=== PATIENT | male | born 1935 | race Caucasian/White ===

== ENCOUNTER 2017-07-20 14:21 | Inpatient (IN) | payer MEDICARE, OTHER, BC ==
[2017-07-20] VITALS (10 sets, daily range): BP systolic 125–148; BP diastolic 60–85; PULSE 52–69; RESP 16–21; TEMP 97.6–98.4; O2SAT 95–98
[~2017-07-20] VITALS: Ht 167.6 cm; Wt 77.5 kg
[~2017-07-20 14:21] MED LIST: ASPI81 PO; CLOP75 PO; CRES10TA OR; FISH100020 PO; HYDR-2768 PO; METO25 PO; VITA200T2 PO
[2017-07-20] MEDS ORDERED: PLAV75TA29 PO (14:41)
[2017-07-20] MEDS ORDERED: METO25TA3 PO (14:41)
[2017-07-20] MEDS ORDERED: ROSU10 PO (14:41)
[2017-07-20] MEDS ORDERED: HYDR25TA5 PO (14:41)
[2017-07-20] MEDS ORDERED: OMEGCAP PO (14:41)
[2017-07-20] MEDS ORDERED: PYRI100T4 PO (14:41)
[2017-07-20] MEDS ORDERED: ASPI-516 CHEW (14:41)
[2017-07-20] MEDS ORDERED: SODIUM CHLORIDE 0.9% FLUSH 10 ML FLUSH IVF PRN (15:00)
--- NOTE | 2017-07-20 15:03 | PD ---
HPI Chief Complaint: Chest Pain Time Seen by Provider: 14:33 Travel History International Travel<30 days: No Contact w/Intl Traveler<30days: No History of Present Illness HPI Send 82-year-old man who presents to the emergency department complaining of chest pain and pressure since yesterday. He is a history of CAD, with several stents placed by Dr. Yoder a couple years ago. He's done well since then. Yesterday he started getting show like discomfort across the entire anterior part of his chest, associated with some shortness of breath. He woke up today and still having the symptoms this morning, the symptoms worsen when he went to [facility] and was walking around. He had associated shortness of breath with this. No other recent illness or injury. No other complaints. History Past Medical History Narrative Medical CAD, history of stents Hypertension on hyperlipidemia Hypothyroidism History of prostate CA, receiving radiation Social History Alcohol Use: No Tobacco Use: No Allergies-Medications (Allergen,Severity, Reaction): Coded Allergies: No Known Allergies (Unverified Adverse Reaction, Unknown, 07/20/17) Reported Meds & Prescriptions Reported Meds & Active Scripts Active Reported Pyridoxine (Pyridoxine HCl) 100 Mg Tab 200 Mg PO DAILY [place]-3 Fish Oil/Vitamin (Fish Oil-Cholecalciferol) 1,000-1,000 Mg Cap 1 Cap PO DAILY Hydrochlorothiazide 25 Mg Tab 25 Mg PO DAILY Metoprolol Tartrate 25 Mg Tab 25 Mg PO DAILY Crestor (Rosuvastatin Calcium) 10 Mg Tab 10 Mg PO DAILY Plavix (Clopidogrel Bisulfate) 75 Mg Tab 75 Mg PO DAILY Aspirin 81 Mg Chew 81 Mg CHEW DAILY Review of Systems Except as stated in HPI: all other systems reviewed are Neg Physical Exam Narrative GENERAL: 82-year-old man, no acute distress. SKIN: Focused skin assessment warm/dry. HEAD: Atraumatic. Normocephalic. EYES: Pupils equal and round. No scleral icterus. No injection or drainage. ENT: No nasal bleeding or discharge. Mucous membranes pink and moist. NECK: Trachea midline. No JVD. CARDIOVASCULAR: Regular rate and rhythm. Soft systolic murmur. RESPIRATORY: No accessory muscle use. Clear to auscultation. Breath sounds equal bilaterally. GASTROINTESTINAL: Abdomen soft, non-tender, nondistended. Hepatic and splenic margins not palpable. MUSCULOSKELETAL: No obvious deformities. No clubbing. No cyanosis. No edema. NEUROLOGICAL: Awake and alert. No obvious cranial nerve deficits. Motor grossly within normal limits. Normal speech. PSYCHIATRIC: Appropriate mood and affect; insight and judgment normal. Data Data Last Documented VS Vital Signs Date Time Temp Pulse Resp B/P (MAP) Pulse Ox O2 Delivery O2 Flow Rate FiO2 07/20/17 14:24 98.4 67 16 137/63 (87) 98 Orders Orders Electrocardiogram (07/20/17 14:54) Complete Blood Count With Diff (07/20/17 14:54) Comprehensive Metabolic Panel (07/20/17 14:54) Magnesium (Mg) (07/20/17 14:54) Prothrombin Time / Inr (Pt) (07/20/17 14:54) Act Partial Throm Time (Ptt) (07/20/17 14:54) Troponin I (07/20/17 14:54) Chest, Single Ap (07/20/17 14:54) Ecg Monitoring (07/20/17 14:54) Bilateral Bp Monitoring (07/20/17 14:54) Iv Access Insert/Monitor (07/20/17 14:54) Oximetry (07/20/17 14:54) Oxygen Administration (07/20/17 14:54) Sodium Chloride 0.9% Flush (Ns Flush) (07/20/17 15:00) Heparin Inj (Heparin Inj) (07/20/17 16:45) Heparin Inj (Heparin Inj) (07/20/17 22:45) Heparin Inj (Heparin Inj) (07/20/17 22:45) Heparin-D5w 25,000 U/250 Ml (Heparin-D5w (07/20/17 16:45) Act Partial Throm Time (Ptt) (07/20/17 16:45) Prothrombin Time / Inr (Pt) (07/20/17 16:45) Cbc No Diff, Includes Plts (07/20/17 16:45) Cbc No Diff, Includes Plts (07/23/17 06:00) Act Partial Throm Time (Ptt) (07/20/17 23:45) Occult Blood (Hemoccult) Stool (07/20/17 16:45) Consult Cardiology (07/20/17 ) Admit Order (Ed Use Only) (07/20/17 ) Labs Laboratory Tests Test 07/20/17 15:00 Prothrombin Time 11.4 SEC Prothromb Time International Ratio 1.0 RATIO Activated Partial Thromboplast Time 29.0 SEC Blood Urea Nitrogen 23 MG/DL Creatinine 0.99 MG/DL Random Glucose 112 MG/DL Total Protein 7.4 GM/DL Albumin 3.4 GM/DL Calcium Level 9.1 MG/DL Magnesium Level 2.2 MG/DL Alkaline Phosphatase 67 U/L Aspartate Amino Transf (AST/SGOT) 23 U/L Alanine Aminotransferase (ALT/SGPT) 21 U/L Total Bilirubin 0.6 MG/DL Sodium Level 138 MEQ/L Potassium Level 4.4 MEQ/L Chloride Level 107 MEQ/L Carbon Dioxide Level 21.7 MEQ/L Anion Gap 9 MEQ/L Estimat Glomerular Filtration Rate 73 ML/MIN Troponin I 0.07 NG/ML MDM Medical Decision Making Medical Screen Exam Complete: Yes Emergency Medical Condition: Yes Interpretation(s) My review of EKG: Normal sinus rhythm at a rate of 65, normal axis, normal intervals, nonspecific lateral T wave inversions and flattening, no definite evidence of acute ischemia. LABS: Differential Diagnosis ACS, anxiety, arrhythmia, chest wall pain, other Narrative Course Medical decision making Is an 82-year-old man who presents to the emergency department with pressure- like chest discomfort. History of ACS with previous stents. Looks otherwise well. Initial EKG doesn't show any definite changes but does have some nonspecific T-wave flattening. We'll check labs, x-ray. Final: Troponin minimally elevated. We'll plan admission to the hospital, nitroglycerin, heparin, cardiology consultation. Spoke with Dr. Haro, will admit patient. Physician Communication Physician Communication Spoke with Dr. Haro, will admit patient. Diagnosis Primary Impression: ACS (acute coronary syndrome) Admitting Information Admitting Physician Requests: Admit Kip Shin MD Jul 20, 2017 15:03
--- NOTE | 2017-07-20 15:20 | RADRPT ---
EXAM DATE/TIME: 07/20/2017 15:04 [place] COMPARISON: No previous studies available for comparison. INDICATIONS : Patient states chest pains. MEDICAL HISTORY : None. SURGICAL HISTORY : Coronary artery stent. ENCOUNTER: Initial ACUITY: 1 day PAIN SCORE: 7/10 LOCATION: Bilateral chest FINDINGS: A single view of the chest demonstrates diffuse interstitial lung disease. Atherosclerotic disease.. The cardiomediastinal contours are unremarkable. Osseous structures are intact. CONCLUSION: Widespread diffuse interstitial prominence throughout the lungs. No pneumothorax. Kip Fields MD on July 20, 2017 at 15:17 Board Certified Radiologist. This report was verified electronically.
[2017-07-20 15:58] LABS: PROTHROMBIN TIME - PATIENT 11.4 SEC (9.8-11.6)
[2017-07-20 16:09] LABS: ALT (GPT) 21 U/L (12-78); ANION GAP 9 MEQ/L (5-15); AST (GOT) 23 U/L (15-37); BICARBONATE 21.7 MEQ/L (21.0-32.0); BLOOD UREA NITROGEN 23 MG/DL (7-18); CHLORIDE 107 MEQ/L (98-107); GLOMERULAR FILTRATION RATE 73 ML/MIN (>89); MAGNESIUM 2.2 MG/DL (1.5-2.5); POTASSIUM 4.4 MEQ/L (3.5-5.1); SODIUM (NA) 138 MEQ/L (136-145)
[2017-07-20 16:14] LABS: ALKALINE PHOSPHATASE 67 U/L (45-117); TOTAL BILIRUBIN ADULT 0.6 MG/DL (0.2-1.0)
[2017-07-20] MEDS ORDERED: HEPARIN-D5W 25,000 U/250 ML 250 ML IV PRN ×2 (16:45→20:00)
[2017-07-20] MEDS ORDERED: HEPARIN SODIUM - IV 10,000 UNITS/10 ML VIAL IV ONE (16:45)
[2017-07-20] MEDS ORDERED: NALOXONE HCL 0.4 MG/ML AMP IV PUSH PRN (17:45)
[2017-07-20] MEDS ORDERED: ONDANSETRON HCL 4 MG/2 ML VIAL IVP PRN (17:45)
[2017-07-20] MEDS ORDERED: ACETAMINOPHEN 325 MG TAB PO PRN (17:45)
[2017-07-20] MEDS ORDERED: SODIUM CHLORIDE 0.9% FLUSH 10 ML FLUSH IV FLUSH PRN (17:45)
[2017-07-20 17:57] LABS: APTT (PATIENT) 29.2 SEC (24.3-30.1); PROTHROMBIN TIME - PATIENT 11.5 SEC (9.8-11.6)
[2017-07-20] MEDS ORDERED: ASPIRIN EC 81 MG TABEC PO ONE (20:00)
[2017-07-20] MEDS ORDERED: CARVEDILOL 3.125 MG TAB PO ONE (20:00)
[2017-07-20] MEDS: ATORVASTATIN 40 MG TAB PO SCH (20:24)
[2017-07-20] MEDS: SODIUM CHLORIDE 0.9% FLUSH 10 ML FLUSH IV FLUSH SCH (20:27)
[2017-07-20] MEDS ORDERED: NITROGLYCERIN/DEXTROSE 5% 250 ML for chest pain IV PRN (20:45)
[2017-07-20] MEDS: NITROGLYCERIN 2% OINT 1 GM PACKET TOPICAL SCH (20:52)
[2017-07-20] MEDS: MORPHINE SULFATE 2 MG/ML INJ IM PRN (20:53)
[2017-07-20 21:54] LABS: AUTOMATED NEUTROPHIL # 6.1 TH/MM3 (1.8-7.7); BASOPHIL % 0.3 % (0.0-2.0); EOSINOPHIL # 0.4 TH/MM3 (0-0.4); EOSINOPHIL % 4.3 % (0.0-4.0); HEMATOCRIT 32.8 % (39.0-51.0); HEMO FLAGS DIFF FINAL; LYMPHOCYTE # 1.5 TH/MM3 (1.0-4.8); MEAN CELL VOLUME 89.4 FL (80.0-100.0); MEAN CORPUSCULAR HEMOGLOBIN 30.6 PG (27.0-34.0); MEAN CORPUSCULAR HGB CONC 34.3 % (32.0-36.0); MONO % 7.5 % (0.0-8.0); NEUT % 70.9 % (16.0-70.0); PLATELET COUNT 163 TH/MM3 (150-450); RED BLOOD COUNT 3.67 MIL/MM3 (4.50-5.90); RED CELL DISTRIBUTION WIDTH 13.4 % (11.6-17.2); WHITE BLOOD COUNT 8.7 TH/MM3 (4.0-11.0)
[2017-07-20] MEDS ORDERED: HEPARIN SODIUM - IV 10,000 UNITS/10 ML VIAL IV PRN ×2 (22:45)
[2017-07-21] VITALS (25 sets, daily range): BP systolic 129–152; BP diastolic 50–69; PULSE 44–96; RESP 17–19; TEMP 97.4–98.4; O2SAT 93–98
[2017-07-21] MEDS: NITROGLYCERIN 2% OINT 1 GM PACKET TOPICAL SCH ×4 (03:08→20:24)
[2017-07-21 03:51] LABS: APTT (PATIENT) 52.2 SEC (24.3-30.1)
[2017-07-21 04:21] LABS: MEAN CELL VOLUME 88.9 FL (80.0-100.0); MEAN CORPUSCULAR HEMOGLOBIN 30.4 PG (27.0-34.0); MEAN CORPUSCULAR HGB CONC 34.2 % (32.0-36.0); PLATELET COUNT 123 TH/MM3 (150-450); RED BLOOD COUNT 3.38 MIL/MM3 (4.50-5.90); RED CELL DISTRIBUTION WIDTH 13.2 % (11.6-17.2); REVIEW FLAG FINAL; WHITE BLOOD COUNT 8.9 TH/MM3 (4.0-11.0)
[2017-07-21] MEDS: MORPHINE SULFATE 2 MG/ML INJ IM PRN (07:51)
[2017-07-21] MEDS ORDERED: IOHEXOL 350 MG/ML 100 ML BTL (for Cath Lab) OTHER ONE (08:44)
[2017-07-21] MEDS ORDERED: HEPARIN-NS/PF INJ 1,000 ML ONE (08:47)
--- NOTE | 2017-07-21 08:50 | HHI.HP ---
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 Past Family Social History Allergies: Coded Allergies: No Known Allergies (Unverified Allergy, Unknown, 07/20/17) Past Medical History hptn hld hypothyroidism Past Surgical History prostate cancer Reported Medications Reported Meds & Active Scripts Active Reported Pyridoxine (Pyridoxine HCl) 100 Mg Tab 200 Mg PO DAILY [employer] Fish Oil/Vitamin (Fish Oil-Cholecalciferol) 1,000-1,000 Mg Cap 1 Cap PO DAILY Hydrochlorothiazide 25 Mg Tab 25 Mg PO DAILY Metoprolol Tartrate 25 Mg Tab 25 Mg PO DAILY Crestor (Rosuvastatin Calcium) 10 Mg Tab 10 Mg PO DAILY Plavix (Clopidogrel Bisulfate) 75 Mg Tab 75 Mg PO DAILY Aspirin 81 Mg Chew 81 Mg CHEW DAILY Active Ordered Medications Inpatient Medications Acetaminophen (Tylenol) 650 mg Q4H PRN PO TEMP > 100.4; Start 07/20/17 at 17: 45 Aspirin (Ecotrin Ec) 162 mg DAILY PO ; Start 07/21/17 at 09:00 Atorvastatin Calcium (Lipitor) 40 mg HS PO Last administered on 07/20/17 20: 24; Start 07/20/17 at 21:00 Carvedilol (Coreg) 3.125 mg Q12H PO ; Start 07/21/17 at 08:00 Heparin Sodium (Porcine) (Heparin Inj) 2,500 units UNSCH PRN IV APTT 25 TO 39; Start 07/20/17 at 22:45 Heparin Sodium/ Dextrose 250 ml @ 9 mls/hr TITRATE PRN IV Coagulation Management Last administered on 07/20/17 20:33; Start 07/20/17 at 20:00 Morphine Sulfate (Morphine Inj) 2 mg Q3H PRN IM PAIN SCALE 8 TO 10/CHEST PAIN Last administered on 07/21/17 07:51; Start 07/20/17 at 20:30 Naloxone HCl (Narcan Inj) 0.4 mg UNSCH PRN IV PUSH SEE LABEL COMMENTS; Start 07/20/17 at 17:45 Nitroglycerin (Nitroglycerin 2% Oint) 1 inch Q6H TOPICAL Last administered on 07/21/17 07:51; Start 07/20/17 at 21:00 Nitroglycerin/ Dextrose 250 ml @ 3 mls/hr TITRATE PRN IV Chest pain; Start at 20:45 Ondansetron HCl (Zofran Inj) 4 mg Q6H PRN IVP NAUSEA OR VOMITING; Start at 17:45 Sodium Chloride (NS Flush) 2 ml BID IV FLUSH Last administered on 07/20/17t 20 :27; Start 07/20/17 at 21:00 Social History non smoker non drinker Physical Exam Vital Signs Vital Signs Date Time Temp Pulse Resp B/P (MAP) Pulse Ox O2 Delivery O2 Flow Rate FiO2 07/21/17 06:00 56 07/21/17 05:37 95 Simple Mask 3.00 07/21/17 05:00 61 07/21/17 04:41 98 Simple Mask 4.00 07/21/17 04:28 98 Simple Mask 5.00 07/21/17 04:00 64 07/21/17 03:00 48 07/21/17 03:00 97.6 61 18 129/62 (84) 97 07/21/17 02:00 44 07/21/17 01:00 48 07/21/17 00:00 50 07/20/17 23:43 97.6 59 18 125/60 (81) 95 07/20/17 23:00 52 07/20/17 22:16 96 Nasal Cannula 3.00 07/20/17 22:00 62 07/20/17 22:00 88 Nasal Cannula 4.00 07/20/17 21:00 64 07/20/17 20:10 97.6 69 18 148/70 (96) 97 07/20/17 20:00 64 07/20/17 16:00 61 21 129/85 (100) 95 Nasal Cannula 2.00 07/20/17 15:15 21 95 2.00 07/20/17 15:15 131/81 (98) 128/85 (99) 07/20/17 15:15 95 Nasal Cannula 2.00 07/20/17 14:24 98.4 67 16 137/63 (87) 98 Physical Exam GENERAL: This is a well-nourished, well-developed patient, in no apparent distress. SKIN: No rashes, ecchymoses or lesions. Cool and dry. HEAD: Atraumatic. Normocephalic. No temporal or scalp tenderness. EYES: Pupils equal round and reactive. Extraocular motions intact. No scleral icterus. No injection or drainage. ENT: Nose without bleeding, purulent drainage or septal hematoma. Throat without erythema, tonsillar hypertrophy or exudate. Uvula midline. Airway patent. NECK: Trachea midline. No JVD or lymphadenopathy. Supple, nontender, no meningeal signs. CARDIOVASCULAR: Regular rate and rhythm without murmurs, gallops, or rubs no chest pain at present RESPIRATORY: Clear to auscultation. Breath sounds equal bilaterally. No wheezes , rales, or rhonchi. GASTROINTESTINAL: Abdomen soft, non-tender, nondistended. No hepato-splenomegaly , or palpable masses. No guarding. MUSCULOSKELETAL: Extremities without clubbing, cyanosis, or edema. No joint tenderness, effusion, or edema noted. No calf tenderness. Negative Homans sign bilaterally. NEUROLOGICAL: Awake and alert. Cranial nerves II through XII intact. Motor and sensory grossly within normal limits. Five out of 5 muscle strength in all muscle groups. Normal speech. Laboratory Laboratory Tests Test 07/20/17 15:00 07/20/17 17:00 07/20/17 21:34 07/21/17 00:05 Prothrombin Time 11.4 11.5 Prothromb Time International Ratio 1.0 1.0 Activated Partial Thromboplast Time 29.0 29.2 Blood Urea Nitrogen 23 Creatinine 0.99 Random Glucose 112 Total Protein 7.4 Albumin 3.4 Calcium Level 9.1 Magnesium Level 2.2 Alkaline Phosphatase 67 Aspartate Amino Transf (AST/SGOT) 23 Alanine Aminotransferase (ALT/SGPT) 21 Total Bilirubin 0.6 Sodium Level 138 Potassium Level 4.4 Chloride Level 107 Carbon Dioxide Level 21.7 Anion Gap 9 Estimat Glomerular Filtration Rate 73 Troponin I 0.07 0.06 0.07 White Blood Count 8.7 Red Blood Count 3.67 Hemoglobin 11.2 Hematocrit 32.8 Mean Corpuscular Volume 89.4 Mean Corpuscular Hemoglobin 30.6 Mean Corpuscular Hemoglobin Concent 34.3 Red Cell Distribution Width 13.4 Platelet Count 163 Mean Platelet Volume 9.1 Neutrophils (%) (Auto) 70.9 Lymphocytes (%) (Auto) 17.0 Monocytes (%) (Auto) 7.5 Eosinophils (%) (Auto) 4.3 Basophils (%) (Auto) 0.3 Neutrophils # (Auto) 6.1 Lymphocytes # (Auto) 1.5 Monocytes # (Auto) 0.6 Eosinophils # (Auto) 0.4 Basophils # (Auto) 0.0 CBC Comment DIFF FINAL Differential Comment Test 07/21/17 03:00 07/21/17 03:28 Activated Partial Thromboplast Time 52.2 White Blood Count 8.9 Red Blood Count 3.38 Hemoglobin 10.3 Hematocrit 30.0 Mean Corpuscular Volume 88.9 Mean Corpuscular Hemoglobin 30.4 Mean Corpuscular Hemoglobin Concent 34.2 Red Cell Distribution Width 13.2 Platelet Count 123 Mean Platelet Volume 9.8 B-Type Natriuretic Peptide 760 Result Diagram: 07/21/17 0328 07/20/17 1500 Imaging Last Impressions Chest X-Ray 07/20/17 1454 Signed Impressions: Service Date/Time: Thursday, July 20, 2017 15:04 - CONCLUSION: Widespread diffuse interstitial prominence throughout the lungs. No pneumothorax. Kip Fields MD Course cp intermittant through night ms and nitro ordered pt to cath this am Caprini VTE Risk Assessment Caprini VTE Risk Assessment: No/Low Risk (score <= 1) Caprini Risk Assessment Model Point Value = 1 Point Value = 2 Point Value = 3 Point Value = 5 Age 41-60 Minor surgery BMI > 25 kg/m2 Swollen legs Varicose veins or History of unexplained or recurrent spontaneous Oral contraceptives or hormone replacement Sepsis (< 1 month) Serious lung disease, including pneumonia (< 1 month) Abnormal pulmonary function Acute myocardial infarction Congestive heart failure (< 1 month) History of inflammatory bowel disease Medical patient at bed rest Age 61-74 Arthroscopic surgery Major open surgery (> 45 min) Laparoscopic surgery (> 45 min) Malignancy Confined to bed (> 72 hours) Immobilizing plaster cast Central venous access Age >= 75 History of VTE Family history of VTE Factor V Leiden Prothrombin [id number] Lupus anticoagulant Anticardiolipin antibodies Elevated serum homocysteine Heparin-induced thrombocytopenia Other congenital or acquired thrombophilia Stroke (< 1 month) Elective arthroplasty Hip, pelvis, or leg fracture Acute spinal cord injury (< 1 month) Prophylaxis Regimen Total Risk Factor Score Risk Level Prophylaxis Regimen 0-1 Low Early ambulation 2 Moderate Order ONE of the following: *Sequential Compression Device (SCD) *Heparin 5000 units SQ BID 3-4 Higher Order ONE of the following medications: *Heparin 5000 units SQ TID *Enoxaparin/Lovenox 40 mg SQ daily (WT < 150 kg, CrCl > 30 mL/min) *Enoxaparin/Lovenox 30 mg SQ daily (WT < 150 kg, CrCl > 10-29 mL/min) *Enoxaparin/Lovenox 30 mg SQ BID (WT < 150 kg, CrCl > 30 mL/min) AND/OR *Sequential Compression Device (SCD) 5 or more Highest Order ONE of the following medications: *Heparin 5000 units SQ TID (Preferred with Epidurals) *Enoxaparin/Lovenox 40 mg SQ daily (WT < 150 kg, CrCl > 30 mL/min) *Enoxaparin/Lovenox 30 mg SQ daily (WT < 150 kg, CrCl > 10-29 mL/min) *Enoxaparin/Lovenox 30 mg SQ BID (WT < 150 kg, CrCl > 30 mL/min) AND *Sequential Compression Device (SCD) Assessment and Plan Problem List: (1) CAD (coronary artery disease) ICD Codes: I25.10 - Atherosclerotic heart disease of [place] coronary artery without angina pectoris Plan: on bp and lipid management will have cardiac catheterization (2) Chest pain ICD Codes: R07.9 - Chest pain, unspecified Plan: to heart cath now Assessment and Plan chest pain cad htn hld Discussed Condition With patient Hans Hill Jul 21, 2017 08:50
--- NOTE | 2017-07-21 08:53 | HHI.PR ---
Subjective Remarks resting quietly more alert and oriented today Objective Vital Signs Date Time Temp Pulse Resp B/P (MAP) Pulse Ox O2 Delivery O2 Flow Rate FiO2 07/21/17 06:00 56 07/21/17 05:37 95 Simple Mask 3.00 07/21/17 05:00 61 07/21/17 04:41 98 Simple Mask 4.00 07/21/17 04:28 98 Simple Mask 5.00 07/21/17 04:00 64 07/21/17 03:00 48 07/21/17 03:00 97.6 61 18 129/62 (84) 97 07/21/17 02:00 44 07/21/17 01:00 48 07/21/17 00:00 50 07/20/17 23:43 97.6 59 18 125/60 (81) 95 07/20/17 23:00 52 07/20/17 22:16 96 Nasal Cannula 3.00 07/20/17 22:00 62 07/20/17 22:00 88 Nasal Cannula 4.00 07/20/17 21:00 64 07/20/17 20:10 97.6 69 18 148/70 (96) 97 07/20/17 20:00 64 07/20/17 16:00 61 21 129/85 (100) 95 Nasal Cannula 2.00 07/20/17 15:15 21 95 2.00 07/20/17 15:15 131/81 (98) 128/85 (99) 07/20/17 15:15 95 Nasal Cannula 2.00 07/20/17 14:24 98.4 67 16 137/63 (87) 98 I/O 07/20/17 07/20/17 07/20/17 07/21/17 07/21/17 07/21/17 07:00 15:00 23:00 07:00 15:00 23:00 Intake Total 82.5 ml Output Total 250 ml 150 ml Balance -250 ml -67.5 ml Intake IV Total 82.5 ml Output Urine Total 250 ml 150 ml Result Diagram: 07/21/17 0328 07/20/17 1500 Imaging Inpatient Medications Acetaminophen (Tylenol) 650 mg Q4H PRN PO TEMP > 100.4; Start 07/20/17 at 17: 45 Aspirin (Ecotrin Ec) 162 mg DAILY PO ; Start 07/21/17 at 09:00 Atorvastatin Calcium (Lipitor) 40 mg HS PO Last administered on 07/20/17 20: 24; Start 07/20/17 at 21:00 Carvedilol (Coreg) 3.125 mg Q12H PO ; Start 07/21/17 at 08:00 Heparin Sodium (Porcine) (Heparin Inj) 2,500 units UNSCH PRN IV APTT 25 TO 39; Start 07/20/17 at 22:45 Heparin Sodium/ Dextrose 250 ml @ 9 mls/hr TITRATE PRN IV Coagulation Management Last administered on 07/20/17 20:33; Start 07/20/17 at 20:00 Morphine Sulfate (Morphine Inj) 2 mg Q3H PRN IM PAIN SCALE 8 TO 10/CHEST PAIN Last administered on 07/21/17 07:51; Start 07/20/17 at 20:30 Naloxone HCl (Narcan Inj) 0.4 mg UNSCH PRN IV PUSH SEE LABEL COMMENTS; Start 07/20/17 at 17:45 Nitroglycerin (Nitroglycerin 2% Oint) 1 inch Q6H TOPICAL Last administered on 07/21/17 07:51; Start 07/20/17 at 21:00 Nitroglycerin/ Dextrose 250 ml @ 3 mls/hr TITRATE PRN IV Chest pain; Start at 20:45 Ondansetron HCl (Zofran Inj) 4 mg Q6H PRN IVP NAUSEA OR VOMITING; Start at 17:45 Sodium Chloride (NS Flush) 2 ml BID IV FLUSH Last administered on 07/20/17 20 :27; Start 07/20/17 at 21:00 Objective Remarks GENERAL: Well-nourished, well-developed patient. SKIN: Warm and dry. HEAD: Normocephalic. EYES: No scleral icterus. No injection or drainage. NECK: Supple, trachea midline. No JVD or lymphadenopathy. CARDIOVASCULAR: Regular rate and rhythm without murmurs, gallops, or rubs. RESPIRATORY: Breath sounds equal bilaterally. No accessory muscle use. GASTROINTESTINAL: Abdomen soft, non-tender, nondistended. EXTREMITIES: No cyanosis, or edema. NEUROLOGICAL: Awake, alert, and more oriented today no obvious hallucinationsNon-focal. Medications and IVs Inpatient Medications Acetaminophen (Tylenol) 650 mg Q4H PRN PO TEMP > 100.4; Start 07/20/17 at 17: 45 Aspirin (Ecotrin Ec) 162 mg DAILY PO ; Start 07/21/17 at 09:00 Atorvastatin Calcium (Lipitor) 40 mg HS PO Last administered on 07/20/17 20: 24; Start 07/20/17 at 21:00 Carvedilol (Coreg) 3.125 mg Q12H PO ; Start 07/21/17 at 08:00 Heparin Sodium (Porcine) (Heparin Inj) 2,500 units UNSCH PRN IV APTT 25 TO 39; Start 07/20/17 at 22:45 Heparin Sodium/ Dextrose 250 ml @ 9 mls/hr TITRATE PRN IV Coagulation Management Last administered on 07/20/17 20:33; Start 07/20/17 at 20:00 Morphine Sulfate (Morphine Inj) 2 mg Q3H PRN IM PAIN SCALE 8 TO 10/CHEST PAIN Last administered on 07/21/17 07:51; Start 07/20/17 at 20:30 Naloxone HCl (Narcan Inj) 0.4 mg UNSCH PRN IV PUSH SEE LABEL COMMENTS; Start 07/20/17 at 17:45 Nitroglycerin (Nitroglycerin 2% Oint) 1 inch Q6H TOPICAL Last administered on 07/21/17 07:51; Start 07/20/17 at 21:00 Nitroglycerin/ Dextrose 250 ml @ 3 mls/hr TITRATE PRN IV Chest pain; Start at 20:45 Ondansetron HCl (Zofran Inj) 4 mg Q6H PRN IVP NAUSEA OR VOMITING; Start at 17:45 Sodium Chloride (NS Flush) 2 ml BID IV FLUSH Last administered on 07/20/17 20 :27; Start 07/20/17 at 21:00 Assessment and Plan Problem List: (1) CAD (coronary artery disease) ICD Codes: I25.10 - Atherosclerotic heart disease of [place] coronary artery without angina pectoris Plan: on bp and lipid management will have cardiac catheterization (2) Chest pain ICD Codes: R07.9 - Chest pain, unspecified Plan: to heart cath now Assessment and Plan chest pain cad htn hld Discharge Planning pt will need residential placement Hans Hill DO Jul 21, 2017 08:53
[2017-07-21] MEDS ORDERED: HEPARIN SODIUM - IV 10,000 UNITS/10 ML VIAL ONE (09:24)
[2017-07-21] MEDS ORDERED: HEPARIN-NS/PF INJ 500 ML ONE (10:14)
--- NOTE | 2017-07-21 10:23 | MB ---
cc: EVA PELLETIER M.D. DATE OF CONSULTATION: 07/21/2017 REASON FOR CONSULTATION: Jeremias is a very pleasant 82-year gentleman history coronary disease status PCI by myself back in 2011 with drug-eluting stents in the mid and distal left circ. This and done a stage procedure, the initial procedure was through a chronic total occlusion. The patient began developing chest pain on was mild more of a nuisance. He went to [facility] yesterday and developed severe substernal chest pain, severe shortness of breath, weakness, fatigue, diaphoresis, and came to the emergency room was found have elevated troponin. He otherwise denies any fever, chills, cough bleeding times her temper dizziness. Past medical history is per history present illness. He has a history of hypertension, hyperlipidemia, hypothyroidism, history of prostate cancer receiving radiation therapy. SOCIAL HISTORY Denies tobacco or alcohol use. ALLERGIES None. HOME MEDICATIONS 1. <<1:01>> . 1. [place] 3. 2. Hydrochlorothiazide 25 3. Metoprolol 25 daily. 4. Crestor 10 daily. 5. Plavix 75 daily. 6. Aspirin 81 mg daily. IN THE HOSPITAL. 7. Aspirin 62 mg daily 8. Carvedilol 3.25 q.12 h 9. Heparin drip 10. Atorvastatin 40 at bedtime 11. Nitro drip 12. 1 inch nitro paste. PHYSICAL EXAMINATION VITAL SIGNS: Pulse 56, sats 95% on 3 liters. Blood pressure 129/62. IN GENERAL: He is alert and three in no acute distress. NECK: The neck is supple, no jugular venous distention, no bruitis. CARDIOVASCULAR SYSTEM: S1, S2. No murmurs, rubs or gallops. LUNGS: Clear to bilaterally. ABDOMEN: Soft, nontender, positive bowel sounds. EXTREMITIES: Lower extremity edema. LABORATORY DATA White count 8.91, temperature of 33.0, platelet count 123. Sodium 138, potassium 4.4, chloride 107, BUN 23, creatinine 0.99 troponin is 0.07 0.6, 0.7. B-type natriuretic peptide 760, AST 23, INR is 1.0, PTT 3, 52.6. Chest x-ray; widely diffuse interstitial prominence throughout the lungs. No pneumothorax. Electrocardiogram; Normal sinus rhythm, nonspecific ST-T wave changes. DIAGNOSIS: 1. Non-Stemi. 2. Decompensated congestive heart failure. 3. Prostate cancer. 4. Coronary artery disease. 5. Anemia 6. Thrombocytopenia. 7. Bradycardia. DISCUSSION Left heart catheterization is medically necessary due to non-STEMI, multiple cardiac risk factors. Also right heart catheterization due to decompensated congestive heart failure. The patient will continue on aspirin and heparin. We will get ACT after the sheath was placed. To receive Lipitor and Coreg as if he tolerates that however he has had bradycardia and has been intolerant of beta blockers in the past. Will need to monitor and follow trends. MD MAURICIO Teran/leroy /9:02 AM /10:13 AM
[2017-07-21] MEDS ORDERED: TIROFIBAN INFUSION INJ 0 ML IV ONE (10:26)
[2017-07-21] MEDS ORDERED: CLOPIDOGREL 300 MG TAB ONE (11:15)
[2017-07-21] MEDS ORDERED: MISC INFORMATION XX ONE (11:30)
[2017-07-21] MEDS ORDERED: SODIUM CHLORIDE 0.9% FLUSH 10 ML FLUSH IV FLUSH PRN (11:30)
[2017-07-21] MEDS ORDERED: CLOPIDOGREL 300 MG TAB PO ONE (11:30)
[2017-07-21] MEDS ORDERED: BACITRACIN OINT 0.9 GM PKT TOP ONE (11:30)
--- NOTE | 2017-07-21 11:34 | CATHPROC ---
[facility] HIS Report Study Information Study Number Admission Scheduled Start Study Start [id number] Jul 20 2017 4:49PM 07/21/2017 Jul 21 2017 8:40AM [place] [facility] Cardiac Catheterization Admit Source Facility Department Emergency department [facility] - Traffic Sergeant Physician and Clinical Staff Initial Bennie Escalante Wire Loop Machine OperatorJosie Santos RN Wire Loop Machine Operatorjocelyn Felton RN, Adam Recorder Mikey Bernstein,RT(R) Annelise Hahn,RT(R) Procedures Performed Procedure Location (Site) Vessel Name Coronary Angiograms LCA Left Coronary Coronary Angiograms RCA Right Coronary IVUS Lft Main Left Coronary LV Gram-hand inj. LV LV Ventricle PTCA RCA Mid Right Coronary Wire insertion Fem Art (right) Femoral Art Equipment Time Senior Technical Manager Description Size Mfg Part Number Used/Scraped [id number] 09:23 [employer] WIRE, ASAHI PROWATER 180CM 180CM Used *[id number] 29440-95 09:40 [employer] WIRE, ASAHI PROWATER 180CM 180CM Used *[id number] 07111-84 10:29 [employer] WIRE, ASAHI PROWATER 180CM 180CM Used *[id number] 92804-78 10:52 [employer] WIRE, ASAHI PROWATER 180CM 180CM Used *[id number] CATHETER, FR5 SWAN ELA 09:02 LEON SWANN FR 5 110F5 *[id number] Used MONITOR CATHETER, FR5 SWAN ELA 09:14 LEON SWANN FR 5 110F5 *[id number] Used MONITOR TRANSDUCER, TRUWAVE [id number] 08:43 LEON SWANN * Used W/STOCKCOCK *[id number] TRANSDUCER, TRUWAVE [id number] 10:26 LEON SWANN * Used W/STOCKCOCK *[id number] 8957840 10:52 [employer]ON [employer] WIRE, CHOICE PT 182CM 182CM Used *8558968 7954056 10:37 [employer] WIRE, CHOICE PT 182CM 182CM Used *[id number] 670-110-00 *0078053 -004-00 *9662114 538-420 *2313563 -082-00 *1585896 538-421 *8723745 538-453S *8844588 -052-00 *9345784 -054-00 *4504598 -056-00 *2610417 49-145 09:22 Meditech WIRE, BENTSON .035 150CM 150CM Used *[id number] 08:43 MEDLINE INDUSTRIES PACK, CCL CUSTOM * Used *5851313 [id number] 10:26 MEDLINE INDUSTRIES PACK, CCL CUSTOM * Used *8141084 [id number] 10:26 MEDLINE PACER PEN, SKIN DUAL W/ RULER * Used *7054469 [id number] 08:43 MEDLINE PACER PEN, SKIN DUAL W/ RULER * Used *3763832 [id number] 10:44 MEDTRONIC BALLOON, 1.5 X 12MM EUPHORA 12MM Used *[id number] [id number] 10:59 MEDTRONIC BALLOON, 2.0 X 12MM EUPHORA 12MM Used *[id number] BALLOON, 2.25 X 12MM [id number] 10:40 MEDTRONIC 12MM Used EUPHORA *[id number] [id number] 10:42 crobo MEDICAL 30 JAS INDEFLATOR Used *[id number] 09:00 MERIT MEDICAL SHEATH, FR5.5 PRELUDE 11CM FR 5 [id number] Used [id number] 09:32 [employer]ICAL SHEATH, FR6.5 PRELUDE 11CM FR 6.5 038ACT Used *3398432 [id number]- 10:28 MERIT [employer]ICAL SHEATH, FR6.5 PRELUDE 11CM FR 6.5 038ACT Used *6572736 [id number] 10:26 MERIT MEDICAL WIRE, 3MMJ .035 180CM 180CM Used *6919822 [id number] 08:43 [employer]IT [employer]ICAL WIRE, 3MMJ .035 180CM 180CM Used *3457626 [id number] 08:43 NAMIC MANIFOLD, 4 PORT * Used *5272278 [id number] 10:26 NAMIC MANIFOLD, 4 PORT * Used *8648464 10:26 NYCOMED OMNIPAQUE, 350 MG, 150ML 150ML [id number] Used 08:43 NYCOMED OMNIPAQUE, 350 MG, 150ML 150ML [id number] Used [id number] 08:43 QUINN MEDICAL BLANKET,WARM AIR CCL * Used *3528429 [id number] 10:26 QUINN MEDICAL BLANKET,WARM AIR CCL * Used *1313885 [id number] 10:26 TERUMO MEDICAL SHEATH, FR4 TERUMO (10CM) FR 4 Used *5428622 [id number] 08:43 TERUMO MEDICAL SHEATH, FR4 TERUMO (10CM) FR 4 Used *9674542 CATHETER, [place] [employer] [place] [id number] 09:32 [place]OL[place]O Used IMAGING *[id number] [id number] Scrap: Physician 11:07 MEDTRONIC STENT, 2.5 12 INTEGRITY 2.5 12 *[id number] choice [id number] Scrap: Physician 11:05 MEDTRONIC STENT, 2.5 18 INTEGRITY 2.5 18 *[id number] choice [id number] Scrap: Physician 11:10 MEDTRONIC STENT, 2.5 8 INTEGRITY 2.5 8 *[id number] choice Equipment Model, Serial, Lot Number and Expiration Data Description Model Number Serial Number Lot Number Expiration Date BALLOON, 1.5 X 12MM EUPHORA [id number] 01-11-2019 BALLOON, 2.0 X 12MM EUPHORA [id number] 03-09-2019 BALLOON, 2.25 X 12MM EUPHORA [id number] 09-08-2018 CATHETER, [employer] [employer] [id number] 05-26-2019 IMAGING WIRE, BENTSON .035 150CM [id number] 03-26-2020 WIRE, CHOICE PT 182CM [id number] 11-06-2018 WIRE, CHOICE PT 182CM [id number] 04-26-2019 History: Allergies Allergy Reaction No Known Allergies History: Risk Factors Family History of Hypertension Dyslipidemia Previous OK Previous Heart Failure Premature CAD Yes Yes Yes Yes No Prior Valve Prior PCI Prior PCIDate Prior CABG Surgery No Yes 02/07/2012 No Cerebrovascular Peripheral Artery Chronic Lung On Dialysis Diabetes Disease Disease Disease No No No No No History: Other Current Smoker No Labs Hgb (g/dl) Hct (%) WBC (l/cumm) Platelets (thousands) 11.60-17.00 35.00-51.00 4.00-11.00 150.00-450.00 10.3 30 8.9 123 Glucose (mg/dl) BUN (mg/dl) Creatinine (mg/dl) BUN:Creatinine (1:x) 74.00-106.00 7.00-18.00 0.50-1.30 10.00-20.00 112 23 0.9 25.6 Na (meq/l) K (meq/l) 136.00-145.00 3.50-5.10 138 4.4 INR (PTT:PT) 0.90-1.10 1 Troponin I (ng/ml) CPK-MB (ng/ML) 0.02-0.05 0.50-3.60 0.07 Not Drawn Medication Medication Total Dose (Bolus/Oral) Medication Total Dosage/Unit 1% XYLOCAINE 20 mL HEPARIN 8000 units PLAVIX 600 mg Medications (Bolus/Oral) Medication Time Given Dosage/Unit Administered By Reason 1% XYLOCAINE 07/21/2017 9:07:09 AM 20 mL Bennie Yoder 20 mL 1% XYLOCAINE given in lab by Bennie Yoder in Right Groin via Subcutaneous. Ordered by Bennie Morales. HEPARIN 07/21/2017 9:31:11 AM 4000 units Adam Felton RN 4000 units HEPARIN given in lab by Adam Felton RN via Peripheral IV. Ordered by Bennie Yoder. 07/21/2017 10:30:05 HEPARIN 2000 units Josie Feliz AM 2000 units HEPARIN given in lab by Josie Feliz RN via Peripheral IV. Ordered by Bennie Yoder. 07/21/2017 11:05:28 HEPARIN 2000 units Adam Felton RN, AM 2000 units HEPARIN given in lab by Adam Felton RN via Peripheral IV. Ordered by Bennie Yoder. 07/21/2017 11:17:14 PLAVIX 600 mg Adam Felton RN, AM 600 mg PLAVIX given in lab by Adam Felton RN via Oral. Ordered by Bennie Yoder. Medication (Drip) Medication Time Given Dosage/Unit Concentration/Unit Diluent (ml) Solution IV Solutions 07/21/2017 8:56:22 AM 0 mL (IV) 500 NaCl .9 IV Solutions given in lab by Josie Feliz RN in Left Forearm via Peripheral IV. Pump/Drip Flow = 2 0 ml/hr using NaCl .9. Ordered by Bennie Yoder. Initial Case Assessment Cardiovascular HR Rhythm NIBP Chest Pain 60 sr 134/61 0 Edema Present Skin color Skin None Normal Warm Dry Circulatory - Right Pulses Dorsalis Pedis Femoral 3 3 Scale (0,1,2,3,4,d) Circulatory - Left Pulses Dorsalis Pedis Femoral 3 3 Scale (0,1,2,3,4,d) Neurological State Oriented to time-place- Alert Moves all extremities person Respiration - General Respiration Rate SpO2 (%) O2 (lpm) (B/min) 18 98 4 Final Case Assessment Cardiovascular HR Rhythm NIBP Chest Pain 70 sr 124/49 0 Edema Present Skin color Skin None Normal Warm Dry Circulatory - Right Pulses Dorsalis Pedis Femoral 3 3 Scale (0,1,2,3,4,d) Circulatory - Left Pulses Dorsalis Pedis Femoral 3 3 Scale (0,1,2,3,4,d) Neurological State Oriented to time-place- Alert Moves all extremities person Respiration - General Respiration Rate SpO2 (%) O2 (lpm) (B/min) 18 96 4 Chronological Log Time Study Chronological Log 8:44:29 Patient arrived via Bed. 8:44:31 Patient Name, D.O.B, / Armband Verified By R.N. 8:44:32 Consent signed by the physician and the patient and verified by the Traffic Sergeant staff. 8:44:33 Pre-op and post- op instructions given; patient acknowledges understanding of instructions. 8:44:38 Verbal Stimulation=2 Physical Stimulation=2 Airway=2 Respiration=2 TOTAL=8. (0=absent, 1=li mited, 2=present) 8:44:53 Presedation assessment performed by Traffic Sergeant RN. 8:44:55 Patient has been NPO for More than 6Hrs. 8:52:49 Skin Breakdown-none present per patient. 8:54:28 Pressure channel 1 zeroed. Vitals capture started with the following parameters, Patient=Adult, Interval=5 min, Initial Pr eiqyft=476 mmHg, 8:55:33 Deflation Rate=5 mmHg, Cuff placed on Left Arm 8:56:10 A # 20 IV was noted in the Forearm (left). Grade = 0 8:56:17 HR=66 bpm, BADG=502/61 mmhg, SpO2=95.0 %, Resp=21 B/min, Yusuf=2 IV Solutions given in lab by Josie Feliz, JILLIAN in Left Forearm via Peripheral IV. Pump/Drip Fl ow = 20 ml/hr using NaCl 8:56:22 .9. Ordered by Bennie Yoder. 8:56:43 History and physical on the chart or being dictated. Assessment: Initial Case, HR=60 BPM, Rhythm=sr, FPHR=242/61 mmhg, Chest Pain=0, Edema=None, [place] r=Normal, Skin = Warm, Dry Right Pulses: Jim Ped=3, Femoral=3 8:56:50 Left Pulses: Jim Ped=3, Femoral=3 Neurological: State=Alert, Ox3, TAVERAS Respiration: Resp=18 B/min, SpO2=98 %, O2=4 lpm 8:56:55 Reference ECG taken 8:57:20 Bilateral groins prepped with 2% chlorhexidine, and draped after a 3 minute waiting time. 9:01:10 HR=68 bpm, FRPQ=755/65 mmhg, SpO2=94.0 %, Resp=26 B/min, Yusuf=2 9:02:13 Pressure channel 1 zeroed. 9:06:13 HR=66 bpm, IDCF=620/55 mmhg, SpO2=94.0 %, Resp=23 B/min, Yusuf=2 Time Out. Correct patient, correct procedure, correct physician, power injector not loaded with contrast with surgical 9:06:36 team present. Time Out Concurred by MD and individual staff in procedure. Not loaded at this melany e. 9:06:55 Presedation re-assessment performed by Traffic Sergeant RN. 9:06:57 Case Start 9:06:59 Verbal Stimulation=2 Physical Stimulation=2 Airway=2 Respiration=2 TOTAL=8. (0=absent, 1=torres ited, 2=present) 20 mL 1% XYLOCAINE given in lab by Bennie Yoder in Right Groin via Subcutaneous. Ordered by Paresh, 9:07:09 Bennie. 9:08:23 Access site was Right Femoral Vein. 9:08:30 A SHEATH, FR5.5 PRELUDE 11CM FR 5 was advanced into the Fem Vein (right) using the Percutane ous technique. 9:09:48 Access site was Right Femoral Artery. 9:09:53 A SHEATH, FR4 TERUMO (10CM) FR 4 was advanced into the Fem Art (right) using the Percutaneou s technique. A CATHETER, FR5 SWAN ELA MONITOR FR 5 was advanced over a wire. OMNIPAQUE, 350 MG, 150ML 150ML was 9:10:03 used for injections. 9:10:41 Activated Clotting Time Drawn 9:10:52 A CATHETER, FR5 SWAN ELA MONITOR FR 5 was inserted via Fem Vein (right) 9:11:08 HR=64 bpm, XQNM=047/63 mmhg, SpO2=97.0 %, Resp=30 B/min, Yusuf=2 9:13:42 ACT (Normal Range 90-180) = 168 9:14:09 SWAN Catheter was removed. Balloon is defective. 9:14:24 A CATHETER, FR5 SWAN ELA MONITOR FR 5 was inserted via Fem Vein (right) 9:15:55 Saturation: Site=Ao (Aorta) , O2=97.4 %, Hgb=10.3 gm/dl, Condition=Condition 1. Used in calc ulation. 9:16:07 HR=62 bpm, FCIX=274/68 mmhg, SpO2=96.0 %, Resp=23 B/min, Yusuf=2 Recorded Pressure: MPA, HR=65, Condition=Condition 1 9:16:43 (Main Pulmonary Artery) MPA 43/12/24 Recorded Pressure: PCW, HR=64, Condition=Condition 1 9:16:59 (Pulmonary Capillary Wedge) PCW 36/46/23 Recorded Pressure: RV, HR=66, Condition=Condition 1 9:17:17 (Right Ventricle) RV 50/5/12 Recorded Pressure: RA, HR=64, Condition=Condition 1 9:18:27 (Right Atrium) RA 14/8/7 9:19:21 Patterson Ela Catheter Removed 9:19:36 Saturation: Site=PA (Pulmonary Artery) , O2=75.9 %, Hgb=10.3 gm/dl, Condition=Condition 1. U sed in calculation. 9:20:01 Saturation: Site=RA (Right Atrium) , O2=76.2 %, Hgb=10.3 gm/dl, Condition=Condition 1. Used in calculation. A JR 4.0 INFINITI CATHETER FR 4 was advanced over a wire. OMNIPAQUE, 350 MG, 150ML 150ML was use d for :20:24 injections. 9:21:08 HR=62 bpm, EVFZ=618/72 mmhg, SpO2=97.0 %, Resp=23 B/min, Yusuf=2 9:22:18 The RCA was injected and visualized at various angles. OMNIPAQUE, 350 MG, 150ML 150ML used. 9:22:50 A WIRE, BENTSON .035 150CM 150CM was inserted via Fem Art (right). 9:24:28 Catheter was removed A JL 4.0 INFINITI CATHETER FR 4 was advanced over a wire. OMNIPAQUE, 350 MG, 150ML 150ML was us ed for 9:24:30 injections. Recorded Pressure: Ao, HR=65, Condition=Condition 1 9:25:22 (Aorta) Ao 119/45/74 9:25:32 The LCA was injected and visualized at various angles. OMNIPAQUE, 350 MG, 150ML 150ML used. 9:26:07 HR=62 bpm, YZVH=592/61 mmhg, SpO2=98.0 %, Resp=20 B/min, Yusuf=2 A PIGTAIL ANG. INFINITI CATHETER FR 4 was advanced over a wire. OMNIPAQUE, 350 MG, 150ML 150ML was used 9:29:37 for injections. Recorded Pressure: LV, HR=61, Condition=Condition 1 9:30:01 (Left Ventricle) LV 142/8/19 9:31:08 HR=62 bpm, UZPP=471/60 mmhg, SpO2=97.0 %, Resp=20 B/min, Yusuf=2 9:31:11 4000 units HEPARIN given in lab by Adam Felton RN via Peripheral IV. Ordered by Nydia Yoder rtfrench. 9:31:34 The LV was manually injected with 10 cc's and visualized. OMNIPAQUE, 350 MG, 150ML 150ML use d. 9:31:41 Catheter was removed A SHEATH, FR6.5 PRELUDE 11CM FR 6.5 was exchanged in the Fem Art (right). This was necessary in order to 9:31:44 accomodate a larger catheter. A XB 4.0 GUIDE CATHETER FR 6 was advanced over a wire. OMNIPAQUE, 350 MG, 150ML 150ML was used for 9:33:17 injections. 9:33:49 Catheter was removed A XB 3.5 GUIDE CATHETER FR 6 was advanced over a wire. OMNIPAQUE, 350 MG, 150ML 150ML was used for 9:35:23 injections. 9:35:35 A WIRE, [employer] PROWATER 180CM 180CM was inserted via Fem Art (right). 9:35:58 Activated Clotting Time Drawn 9:36:09 HR=63 bpm, NUCP=467/60 mmhg, SpO2=98.0 %, Resp=22 B/min, Yusuf=2 9:39:38 Wire removed 9:39:42 Catheter was removed A XB 3.0 GUIDE CATHETER FR 6 was advanced over a wire. OMNIPAQUE, 350 MG, 150ML 150ML was used for 9:40:07 injections. 9:41:08 ACT (Normal Range 90-180) = 282 9:41:12 HR=58 bpm, SMOX=589/53 mmhg, SpO2=98.0 %, Resp=21 B/min, Yusuf=2 After removing the current catheter a JL 4.0 GUIDE CATHETER FR 6 was advanced over a WIRE, 3MMJ .035 180CM 9:44:10 180CM. 9:46:08 A WIRE, ASAHI PROWATER 180CM 180CM was inserted via Fem Art (right). 9:46:09 HR=58 bpm, UBHM=791/63 mmhg, SpO2=98.0 %, Resp=20 B/min, Yusuf=2 9:47:00 Interventional wire has crossed the lesion 9:47:43 An CATHETER, [employer] IMAGING was advanced through the lesion. Images saved on to IVUS hard drive 9:49:00 IVUS in progress using CATHETER, [employer] [employer] IMAGING 9:51:08 HR=59 bpm, AQDM=981/59 mmhg, SpO2=98.0 %, Resp=18 B/min, Yusuf=2 9:53:20 IVUS catheter removed 9:55:47 IVUS catheter removed 9:56:14 HR=66 bpm, OYTU=549/73 mmhg, SpO2=96.0 %, Resp=15 B/min, Yusuf=2 10:00:37 Catheter(s) removed without difficulty 10:00:38 In the Fem Art (right) the SHEATH, FR6.5 PRELUDE 11CM FR 6.[address] by Bennie Darden. 10:00:48 In the Fem Vein (right) the SHEATH, FR5.5 PRELUDE 11CM FR [address] by Bennie Winston. 10:00:58 Sterile dressing applied to site 10:01:01 No case complications noted. 10:01:03 Cine recording checked. 10:01:08 HR=64 bpm, CTNS=502/56 mmhg, SpO2=96.0 %, Resp=23 B/min, Yusuf=2 10:01:08 Bedside Report will be given. 10:01:33 Contrast Scanned 10:02:23 ACT (Normal Range 90-180) = 216 10:05:11 A Left and Right Heart Cath was performed. 10:06:08 HR=65 bpm, XYXI=957/63 mmhg, SpO2=96.0 %, Resp=19 B/min, Yusuf=2 10:13:02 Dr. Yoder consulted with Dr. Cardona. Dr. Yoder is going to stent the RCA at this time . 10:14:31 Patient is being re-prepped at this time. Vitals capture started with the following parameters, Patient=Adult, Interval=5 min, Initial Pr owknzj=816 mmHg, 10:15:16 Deflation Rate=5 mmHg, Cuff placed on Left Arm 10:15:57 HR=59 bpm, JPSR=329/65 mmhg, SpO2=96.0 %, Resp=19 B/min, Yusuf=2 10:20:52 HR=62 bpm, KNKK=301/58 mmhg, SpO2=98.0 %, Resp=25 B/min, Yusuf=2 10:25:51 HR=63 bpm, ESTD=245/60 mmhg, SpO2=95.0 %, Resp=26 B/min, Yusuf=2 10:28:13 Pressure channel 1 zeroed. 10:30:05 2000 units HEPARIN given in lab by Josie Feliz RN via Peripheral IV. Ordered by Bennie Winston. Time Out. Correct patient, correct procedure, correct physician, power injector not loaded with contrast with surgical 10:30:10 team present. Time Out Concurred by MD and individual staff in procedure. Not loaded at this ti me. 10:30:50 HR=60 bpm, BXEL=498/69 mmhg, SpO2=98.0 %, Resp=25 B/min, Yusuf=2 A SHEATH, FR6.5 PRELUDE 11CM FR 6.5 was exchanged in the Fem Art (right). This was necessary in order to insure 10:31:27 sterility. A JR 4.0 GUIDE CATHETER FR 6 was advanced over a wire. OMNIPAQUE, 350 MG, 150ML 150ML was used for 10:32:58 injections. 10:34:05 A WIRE, [employer] PROWATER 180CM 180CM was inserted via Fem Art (right). 10:34:54 Interventional wire has crossed the lesion 10:35:53 HR=64 bpm, MLOE=373/55 mmhg, SpO2=96.0 %, Resp=22 B/min, Yusuf=2 10:36:46 A WIRE, CHOICE PT 182CM 182CM was inserted via Fem Art (right). 10:37:00 Activated Clotting Time Drawn 10:40:44 A BALLOON, 2.25 X 12MM EUPHORA 12MM was inserted over WIRE, CHOICE PT 182CM 182CM via the R CA Mid. 10:40:53 HR=64 bpm, ZVHE=079/59 mmhg, SpO2=95.0 %, Resp=18 B/min, Yusuf=2 A BALLOON, 2.25 X 12MM EUPHORA 12MM over a WIRE, ASAHI PROWATER 180CM 180CM in the RCA Mid was inflated 10:41:22 using a 30 JAS INDEFLATOR at ~JAS~ jas for ~SECONDS~ sec. 10:42:23 ACT (Normal Range 90-180) = 288 10:43:40 Balloon Removed. 10:44:37 A BALLOON, 1.5 X 12MM EUPHORA 12MM was inserted over WIRE, CHOICE PT 182CM 182CM via the RC A Mid. 10:45:54 HR=62 bpm, OOVQ=301/59 mmhg, SpO2=95.0 %, Resp=18 B/min, Yusuf=2 10:48:34 Balloon Removed. 10:48:43 Wires removed 10:49:46 Catheter was removed 10:49:48 A AR 1 GUIDE CATHETER FR 6 was advanced over a wire. OMNIPAQUE, 350 MG, 150ML 150ML was use d for injections. 10:50:53 HR=48 bpm, VCSI=497/60 mmhg, SpO2=95.0 %, Resp=14 B/min, Yusuf=2 10:51:28 A WIRE, CHOICE PT 182CM 182CM was inserted via Fem Art (right). 10:53:34 Interventional wire has crossed the lesion 10:54:49 A WIRE, ASAHI PROWATER 180CM 180CM was inserted via Fem Art (right). 10:54:54 Interventional wire has crossed the lesion 10:55:22 A BALLOON, 1.5 X 12MM EUPHORA 12MM was inserted over WIRE, CHOICE PT 182CM 182CM via the RC A Mid. 10:55:56 HR=66 bpm, SUXO=187/57 mmhg, SpO2=95.0 %, Resp=16 B/min, Yusuf=2 A BALLOON, 1.5 X 12MM EUPHORA 12MM over a WIRE, CHOICE PT 182CM 182CM in the RCA Mid was inflat ed using a 10:56:49 30 JAS INDEFLATOR at 14 jas for 16 sec. A BALLOON, 1.5 X 12MM EUPHORA 12MM over a WIRE, CHOICE PT 182CM 182CM in the RCA Mid was inflat ed using a 10:57:14 30 JAS INDEFLATOR at 14 jas for 15 sec. A BALLOON, 1.5 X 12MM EUPHORA 12MM over a WIRE, CHOICE PT 182CM 182CM in the RCA Mid was inflat ed using a 10:57:37 30 JAS INDEFLATOR at 14 jas for 15 sec. A BALLOON, 1.5 X 12MM EUPHORA 12MM over a WIRE, CHOICE PT 182CM 182CM in the RCA Mid was inflat ed using a 10:58:22 30 JAS INDEFLATOR at 14 jas for 15 sec. 10:59:09 Balloon Removed. 10:59:13 A BALLOON, 2.0 X 12MM EUPHORA 12MM was inserted over WIRE, CHOICE PT 182CM 182CM via the RC A Mid. A BALLOON, 2.0 X 12MM EUPHORA 12MM over a WIRE, CHOICE PT 182CM 182CM in the RCA Mid was inflat ed using a 10:59:26 30 JAS INDEFLATOR at 10 jas for 12 sec. A BALLOON, 2.0 X 12MM EUPHORA 12MM over a WIRE, CHOICE PT 182CM 182CM in the RCA Mid was inflat ed using a 11:01:10 30 JAS INDEFLATOR at 12 jas for 10 sec. 11:01:32 HR=64 bpm, VALS=490/66 mmhg, SpO2=96.0 %, Resp=20 B/min, Yusuf=2 A BALLOON, 2.0 X 12MM EUPHORA 12MM over a WIRE, CHOICE PT 182CM 182CM in the RCA Mid was inflat ed using a 11:01:32 30 JAS INDEFLATOR at 12 jas for 10 sec. 11:02:38 Balloon Removed. An STENT, 2.5 18 INTEGRITY 2.5 18 Bare Metal Stent was inserted through a AR 1 GUIDE CATHETER F R 6 over a 11:05:06 WIRE, CHOICE PT 182CM 182CM. 11:05:28 2000 units HEPARIN given in lab by Adam Felton RN via Peripheral IV. Ordered by Bennie Yoder. 11:06:00 HR=65 bpm, FRZI=891/56 mmhg, SpO2=95.0 %, Resp=19 B/min, Yusuf=2 11:06:36 Stent not deployed. Stent removed and intact. An STENT, 2.5 12 INTEGRITY 2.5 12 Bare Metal Stent was inserted through a AR 1 GUIDE CATHETER F R 6 over a 11:07:37 WIRE, CHOICE PT 182CM 182CM. 11:09:06 Stent not deployed. Stent removed and intact. An STENT, 2.5 8 INTEGRITY 2.5 8 Bare Metal Stent was inserted through a AR 1 GUIDE CATHETER FR 6 over a WIRE, 11:10:14 CHOICE PT 182CM 182CM. 11:10:59 HR=67 bpm, SGJA=199/60 mmhg, SpO2=97.0 %, Resp=18 B/min, Yusuf=2 11:11:42 Stent not deployed. Stent removed and intact. Recorded Pressure: Ao, HR=66, Condition=Condition 1 11:12:26 (Aorta) Ao -33/-79/-61 11:13:20 Activated Clotting Time Drawn 11:13:42 Wires removed 11:13:51 Catheter was removed 11:14:26 Case End 11:15:58 HR=65 bpm, QDKI=428/49 mmhg, SpO2=95.0 %, Resp=20 B/min, Yusuf=2 Assessment: Final Case, HR=70 BPM, Rhythm=sr, MQOR=509/49 mmhg, Chest Pain=0, Edema=None, Color =Normal, Skin = Warm, Dry Right Pulses: Jim Ped=3, Femoral=3 11:16:32 Left Pulses: Jim Ped=3, Femoral=3 Neurological: State=Alert, Ox3, TAVERAS Respiration: Resp=18 B/min, SpO2=96 %, O2=4 lpm 11:17:10 In the Fem Art (right) the SHEATH, FR6.5 PRELUDE 11CM FR 6.[address] by Bennie Darden. 11:17:14 600 mg PLAVIX given in lab by Adam Felton RN via Oral. Ordered by Bennie Yoder. 11:20:55 HR=68 bpm, ILLN=610/58 mmhg, SpO2=96.0 %, Resp=27 B/min, Yusuf=2 11:22:16 ACT (Normal Range 90-180) = 310 11:25:09 [facility] End Study - Contrast Media Used In Study Contrast Total Opened (mL) Total Used (mL) Total Wasted (mL) Omnipaque 175 175 0 End Study - Maximum Contrast Load Max Contrast Load (mL) 429.3 End Study - Radiation Exposure Fluoro Time (minutes) 35.5 End Study - Patient Disposition Complications Transferred To Critical Care Bed
[2017-07-21] MEDS: CARVEDILOL 3.125 MG TAB PO SCH ×2 (12:25→20:22)
[2017-07-21] MEDS: ASPIRIN EC 81 MG TABEC PO SCH (12:25)
[2017-07-21] MEDS: SODIUM CHLORIDE 0.9% FLUSH 10 ML FLUSH IV FLUSH SCH ×3 (12:25→20:22)
[2017-07-21 12:58] LABS: ANION GAP 10 MEQ/L (5-15); AST (GOT) 18 U/L (15-37); BICARBONATE 19.7 MEQ/L (21.0-32.0); BLOOD UREA NITROGEN 27 MG/DL (7-18); CHLORIDE 107 MEQ/L (98-107); GLOMERULAR FILTRATION RATE 79 ML/MIN (>89); MAGNESIUM 2.1 MG/DL (1.5-2.5); POTASSIUM 4.3 MEQ/L (3.5-5.1); SODIUM (NA) 137 MEQ/L (136-145)
[2017-07-21 12:59] LABS: ALT (GPT) 18 U/L (12-78)
[2017-07-21 13:01] LABS: ALKALINE PHOSPHATASE 60 U/L (45-117); TOTAL BILIRUBIN ADULT 0.7 MG/DL (0.2-1.0)
--- NOTE | 2017-07-21 15:29 | EKG ---
Date Performed: 07/20/2017 Time Performed: 14:33:00 PTAGE: 82 years EKG: Sinus rhythm NONSPECIFIC ST & T-WAVE ABNORMALITY ABNORMAL ECG INTERPRETATION BASED ON A DEFAULT AGE OF 41 YEARS C ompared to the PREVIOUS TRACING from 02/08/12, no significant change DOCTOR: Shukri Mcdonnell Interpretating Date/Time 07/21/2017 15:28:33
--- NOTE | 2017-07-21 17:21 | MA ---
cc: EVA PELLETIER M.D. DATE 07/21/17 PROCEDURES PERFORMED 1. Right heart catheterization. 2. left heart catheterization. 3. Left ventriculography. 4. Coronary angiography. 5. IVUS of the left main. 6. PTCA of the proximal right coronary artery. INDICATIONS Non-STEMI, coronary artery disease. [place] Cardiovascular Society class IV angina, acute coronary syndrome, decompensated congestive heart failure with BNP equal to 700, severe coronary artery disease. PROCEDURE IN DETAIL The patient was brought to the Cardiac Catheterization Laboratory, prepped and draped in the usual sterile fashion. 10 cc of 1% lidocaine was used to locally anesthetize the right common femoral artery. 4-Tanzanian sheath was subsequently placed in the right common femoral artery. A 5-Tanzanian sheath placed in the right common femoral vein. Right heart catheterization was performed first with the following findings. These pulmonary capillary wedge pressure was 36/46-23. PA pressure 43/12-24. RV pressure 50/5-12. RA pressure 14/8-7. On 4 liters of nasal cannula the patient's femoral artery sat was 97.4%. PA sat 75.9%, RA sat 76.2%, cardiac output was 7.8 liters per minute. Cardiac index was 4.2 liters per meter squared per minute and the SVR was 1291.4 dynes. Left heart catheterization was then performed with a 4-[place] JR-4, JL-4 and pigtail catheters with the following findings: The right coronary artery is heavily fibrocalcific, the proximate segment very tortuous. The ostium has a slightly ___ orientation with dense fibrocalcific at the os. There is an initial 45 degrees bend followed by a secondary 45 degrees bend followed by a third 90 degrees bend and then just after this with another 90 degrees bend. At the proximal right coronary artery there is an 80% stenosis and at the second 90 degrees bend at the RV branch there is a 95% hazy fibrocalcific stenosis. There is diffuse disease in the mid segment up to 50% angiographically. The [id number]-qa-hxrimh segment has a 40-50% stenosis. There is mild disease in the distal segment up to 20-30 angiographically right PDA has no significant obstructed disease, extends to the apex. The right posterolateral artery is a small vessel with no significant disease angiographically. The left main coronary artery is densely fibrocalcific angiographically. It is short. In the cranial views it appears to have at least a 50% stenosis but it is difficult to tell the true lumen given the shadowing of the dense calcification. The ostium of the left circumflex vessel appears to have an 80% ostial stenosis. There is mild to moderate diffuse disease in the proximal mid segment up to 30-40% angiographically. There is a very small first obtuse marginal vessel, was 0.5 mm in diameter. There is a small to medium size posterolateral artery in the distal left circ, with no significant obstructive disease. Stents in the mid and distal left circ are widely patent. The LAD has a 60% proximal mid stenosis there are two diagonal vessels which are within 2-3 mm of each other which are medium-sized vessels with no significant obstructive disease. The LAD is transapical. DISCUSSION Note, there is no dampening of the pressure waveform with a 4-[place] JL-4 catheter in the left main, however, due to its short anatomy and the amount of dense calcification and the uncertainty of left main disease particularly given the V-wave of pulmonary capillary wedge pressure of 46 suggesting moderate MR as well as severe new onset angina with decompensated congestive heart failure I did think that IVUS of the left main was medically necessary. Therefore, we exchanged the 6-Tanzanian sheath for the 4-Tanzanian sheath. We used a 6-[place]anzanian JL-4 guide. The patient was given 4,000 units of heparin, ACT was 282, then placed a [place] guidewire into the LAD, did two pull backs across the left main documenting the ostium of the bifurcation of the left main with a severe ostial left circ disease. The left main was densely calcified circumferentially with a minimal luminal area of 7.7 mm. I then discussed the case with Dr. Manny Cardona. Given the patient's comorbidities of anemia with hemoglobin of 10 and thrombocytopenia with decreasing platelet count, advanced age and severe fibrocalcification of his vessels and not quite meeting anatomic criteria for left main disease on IVUS measurement we decided to attempt PCI of the right coronary artery and then reevaluate the patient's symptoms with the plan being proceed to CABG if there was no significant improvement in symptoms provided however all the preop workup including a 2-D echo, carotid ultrasound were not contraindications to CABG. The ACT dropped to 216 after the IVUS, therefore he was given another 4000 units of heparin with an ACT of 288. 6-[place]anz[place] AR-1 guide was used to intubate the ostial right coronary artery. I was able to cross the lesion but not advance the wire with a 0.014 Prowater guidewire, therefore I used a 0.04 Choice PT floppy guidewire and advanced this to the distal right coronary artery. I then placed a 0.014 Prowater guidewire which I could advance only to the [id number] right coronary artery as a toby wire. I was not able to deliver a 2-0 12 Euphora balloon. I was able to deliver with difficulty a 1.5 Euphora balloon to the distal lesion in the mid right coronary artery. I then did three inflations up to 14 atmospheres, however, we could not maintain pressure, it appeared that the balloon perforated. Therefore, I then was able to place a 2-0 12 Euphora balloon at the distal lesion. I did four inflations while pulling back to the more proximal lesion of up to 16 atmospheres up to 20 seconds. The stenoses went from 90% to 20% and 80% to 20% respectively in the proximal right coronary artery. I then attempted to deliver a 2518 Integrity stent, a 2512 Integrity stent and a 258 Integrity stent. I was not able to deliver them to the more distal lesion due to vessel tortuosity. I did not feel risk benefit ratio favored more aggressive predilatation as I was concerned about vessel dissection and then not being able to deliver the stent. Also, the patient had an immediate improvement in his systolic blood pressure from about 100 to 120 and heart rate improved from the 40s up the 70s after improved perfusion of the right coronary artery suggesting hemodynamically significant improvement. Also note I did an LV gram was an angled pigtail catheter with LV pressures 142/18-19, EF 60%. CONCLUSION 1. Moderate left main disease and severe two-vessel coronary artery disease in a right-dominant system and moderate to severe three-vessel coronary artery disease in a right-dominant system as detailed above. 2. Normal LV systolic function, ejection fraction 60%. 3. V-Wave to 46 mmHg on pulmonary capillary wedge tracings suggesting at least moderate MR. 4. Pullback gradient across the aortic valve of approximately 20 mmHg. 5. Successful PTCA of proximal right coronary artery from 80% to 20% with KINGSLEY-III flow and successful PTCA of the proximal mid-right coronary from 95% to 20% with KINGSLEY III flow. 6. Recommend Plavix 600 milligrams p.o. load, then 75 milligrams a day for at least 12 or 15 months. Aspirin 162 milligrams daily. I have held the Aggrastat due to the patient's thrombocytopenia and anemia. Continue Lipitor 40, Coreg 3.125 daily and also start Altace 2.5 daily. Will follow the patient's trends and symptoms. If no significant improvement will need to consider coronary artery bypass graft procedure. Also, need to get a 2-D echo to evaluate for MR and aortic valve stenosis. MD MAURICIO Teran/EO /11:25 AM /4:43 PM
[2017-07-21] MEDS: ATORVASTATIN 40 MG TAB PO SCH (20:22)
[2017-07-22] VITALS (34 sets, daily range): BP systolic 108–143; BP diastolic 55–66; PULSE 55–102; RESP 16–19; TEMP 97.5–98.3; O2SAT 92–96
[2017-07-22] MEDS: NITROGLYCERIN 2% OINT 1 GM PACKET TOPICAL SCH ×4 (03:00→20:13)
[2017-07-22 04:30] LABS: AUTOMATED NEUTROPHIL # 6.5 TH/MM3 (1.8-7.7); BASOPHIL % 0.2 % (0.0-2.0); EOSINOPHIL # 0.3 TH/MM3 (0-0.4); EOSINOPHIL % 3.1 % (0.0-4.0); HEMATOCRIT 27.3 % (39.0-51.0); HEMO FLAGS DIFF FINAL; LYMPH % 9.7 % (9.0-44.0); LYMPHOCYTE # 0.8 TH/MM3 (1.0-4.8); MEAN CELL VOLUME 88.5 FL (80.0-100.0); MEAN CORPUSCULAR HEMOGLOBIN 31.5 PG (27.0-34.0); MEAN CORPUSCULAR HGB CONC 35.6 % (32.0-36.0); MONO % 9.4 % (0.0-8.0); NEUT % 77.6 % (16.0-70.0); PLATELET COUNT 156 TH/MM3 (150-450); RED BLOOD COUNT 3.09 MIL/MM3 (4.50-5.90); RED CELL DISTRIBUTION WIDTH 13.8 % (11.6-17.2); WHITE BLOOD COUNT 8.4 TH/MM3 (4.0-11.0)
[2017-07-22 04:59] LABS: BICARBONATE 23.7 MEQ/L (21.0-32.0); POTASSIUM 3.6 MEQ/L (3.5-5.1)
[2017-07-22] MEDS: ASPIRIN EC 81 MG TABEC PO SCH (08:46)
[2017-07-22] MEDS: RAMIPRIL 2.5 MG CAP PO SCH (08:46)
[2017-07-22] MEDS: ASPIRIN 81 MG CHEW TAB PO SCH (08:46)
[2017-07-22] MEDS: CARVEDILOL 3.125 MG TAB PO SCH ×2 (08:46→20:12)
[2017-07-22] MEDS: CLOPIDOGREL 75 MG TAB PO SCH (08:47)
[2017-07-22] MEDS: SODIUM CHLORIDE 0.9% FLUSH 10 ML FLUSH IV FLUSH SCH ×4 (08:47→20:13)
--- NOTE | 2017-07-22 09:30 | HHI.PR ---
Subjective Remarks resting quietly more alert and oriented today had cath yesterday possible CABG pending to be seen by [facility] today Objective Vital Signs Date Time Temp Pulse Resp B/P (MAP) Pulse Ox O2 Delivery O2 Flow Rate FiO2 07/22/17 07:00 73 07/22/17 06:01 73 07/22/17 05:05 68 07/22/17 04:00 72 07/22/17 03:12 71 07/22/17 03:00 98.1 69 17 119/56 (77) 93 07/22/17 02:00 63 07/22/17 01:00 60 07/22/17 00:06 55 07/21/17 23:28 97.9 70 17 131/60 (83) 94 07/21/17 23:26 71 07/21/17 22:10 56 07/21/17 21:00 58 07/21/17 20:00 57 07/21/17 19:15 70 07/21/17 19:15 98.4 73 17 146/69 (94) 95 07/21/17 19:00 95 Room Air 07/21/17 18:00 58 07/21/17 17:00 62 07/21/17 16:14 92 Room Air 07/21/17 16:00 74 07/21/17 15:00 71 07/21/17 15:00 97.8 72 19 130/50 (76) 93 07/21/17 14:00 94 07/21/17 13:03 130/62 (84) 07/21/17 13:00 96 07/21/17 12:34 93 Room Air 07/21/17 12:00 72 07/21/17 11:45 96 07/21/17 11:40 97.4 68 18 132/59 (83) 98 I/O 07/21/17 07/21/17 07/21/17 07/22/17 07/22/17 07/22/17 07:00 15:00 23:00 07:00 15:00 23:00 Intake Total 82.5 ml 480 ml 480 ml Output Total 150 ml 820 ml 175 ml Balance -67.5 ml -340 ml 305 ml Intake Oral 480 ml 480 ml IV Total 82.5 ml Output Urine Total 150 ml 820 ml 175 ml # Bowel Movements 0 Result Diagram: 07/22/17 0411 07/22/171 Imaging Last Impressions Chest X-Ray 07/20/17 8604 Signed Impressions: Service Date/Time: Thursday, July 20, 2017 15:04 - CONCLUSION: Widespread diffuse interstitial prominence throughout the lungs. No pneumothorax. Kip Fields MD Objective Remarks GENERAL: Well-nourished, well-developed patient. SKIN: Warm and dry. HEAD: Normocephalic. EYES: No scleral icterus. No injection or drainage. NECK: Supple, trachea midline. No JVD or lymphadenopathy. CARDIOVASCULAR: Regular rate and rhythm without murmurs, gallops, or rubs. RESPIRATORY: Breath sounds equal bilaterally. No accessory muscle use. GASTROINTESTINAL: Abdomen soft, non-tender, nondistended. EXTREMITIES: No cyanosis, or edema. NEUROLOGICAL: Awake, alert, and more oriented today no obvious hallucinationsNon-focal. Medications and IVs Inpatient Medications Acetaminophen (Tylenol) 650 mg Q4H PRN PO TEMP > 100.4; Start 07/20/17 at 17: 45 Aspirin (Aspirin Chew) 162 mg DAILY PO ; Start 07/22/17 at 09:00 Aspirin (Ecotrin Ec) 162 mg DAILY PO Last administered on 07/22/17 08:46; Start 07/21/17 at 09:00 Atorvastatin Calcium (Lipitor) 40 mg HS PO Last administered on 07/21/17 20: 22; Start 07/20/17 at 21:00 Bacitracin (Bacitracin Oint Packet) 0.9 gm ONCE ONCE TOP ; Start 07/21/17 at 11:30; Stop 07/21/17 at 11:39; Status DC Carvedilol (Coreg) 3.125 mg Q12H PO Last administered on 07/22/17 08:46; Start 07/21/17 at 08:00 Clopidogrel Bisulfate (Plavix) 75 mg DAILY PO Last administered on 07/22/17 08:47; Start 07/22/17 at 09:00 Heparin Sodium (Porcine) (Heparin Inj) 2,500 units UNSCH PRN IV APTT 25 TO 39; Start 07/20/17 at 22:45; Stop 07/21/17 at 11:40; Status DC Heparin Sodium/ Dextrose 250 ml @ 9 mls/hr TITRATE PRN IV Coagulation Management Last administered on 07/20/17 20:33; Start 07/20/17 at 20:00; Stop 07/21/17 at 11:40; Status DC Miscellaneous Information 1 ONCE ONCE XX ; Start 07/21/17 at 11:30; Stop at 11:39; Status DC Morphine Sulfate (Morphine Inj) 2 mg Q3H PRN IM PAIN SCALE 8 TO 10/CHEST PAIN Last administered on 07/21/17 07:51; Start 07/20/17 at 20:30 Naloxone HCl (Narcan Inj) 0.4 mg UNSCH PRN IV PUSH SEE LABEL COMMENTS; Start 07/20/17 at 17:45 Nitroglycerin (Nitroglycerin 2% Oint) 1 inch Q6H TOPICAL Last administered on 07/21/17 20:24; Start 07/20/17 at 21:00 Nitroglycerin/ Dextrose 250 ml @ 3 mls/hr TITRATE PRN IV Chest pain; Start at 20:45 Ondansetron HCl (Zofran Inj) 4 mg Q6H PRN IVP NAUSEA OR VOMITING; Start at 17:45 Ramipril (Altace) 2.5 mg DAILY PO Last administered on 07/22/17 08:46; Start 07/22/17 at 09:00 Sodium Chloride (NS Flush) 2 ml BID IV FLUSH ; Start 07/21/17 at 21:00 Assessment and Plan Problem List: (1) CAD (coronary artery disease) ICD Codes: I25.10 - Atherosclerotic heart disease of [place] coronary artery without angina pectoris Plan: on bp and lipid management will have cardiac catheterization (2) Chest pain ICD Codes: R07.9 - Chest pain, unspecified Status: Acute Plan: bypass under consideration Assessment and Plan chest pain cad htn hld Code Status: Shock, Compressions, Intubation, ACLS Drugs Discussed Condition With patient some stenting done yesterday may still require bypass no pain or sob today will be examined by cardiovascular surgery later today difficult determination on 82year old man SergioHans McdonnellGuy CALLAHAN Jul 22, 2017 09:30
--- NOTE | 2017-07-22 11:31 | MB ---
cc: SHYAM MALDONADO MD DATE OF CONSULTATION: 07/22/2017 REASON FOR CONSULTATION: Dr. Yoder REASON FOR CONSULTATION Surgical opinion regarding coronary artery disease. HISTORY Mr. Caldera is a very pleasant 82 year-old gentleman with known history of coronary artery disease, status post previous [place] [address] Yoder, who presented approximately 72 hours ago with complaints of severe substernal chest discomfort, shortness of breath, weakness, fatigue and diaphoresis. The patient was seen in the emergency room and was noted to have elevated troponin consistent with non-ST elevation myocardial infarction. The patient was [facility] the [facility] yesterday and underwent coronary angiogram which revealed severe critical RCA disease with a very short left main. An IVUS was performed of the left main which did not reveal any significant disease with an estimated minimal luminal diameter of 7.7 millimeters. Based on this, I was consulted to offer surgical opinion. Upon reviewing the coronary angiogram at that time my impression was to proceed with PCI of the right coronary artery since the left main was not significant by measurement parameters or angiographic visualization. He underwent PCI without stenting of the right coronary artery and is now recovering in Intensive Care Unit. PAST MEDICAL HISTORY Significant for: 1. Coronary artery disease as described above, status post PTCA, angioplasty and stenting. 2. Hypertension. 3. Hyperlipidemia. 4. Hypothyroidism. 5. History of prostate cancer, status post radiation therapy. PAST SURGICAL HISTORY: Remarkable for: Prostate cancer. Coronary angioplasty and stenting in 2011 and now again yesterday. ALLERGIES: NO KNOWN DRUG ALLERGIES. ADMISSION MEDICATIONS 1. Hydrochlorothiazide. 2. Metoprolol. 3. Crestor. 4. Plavix. 5. Aspirin. 6. [place] III. SOCIAL HISTORY Denies any history smoking, alcohol use or illicit drug use. FAMILY HISTORY: Noncontributory. REVIEW OF SYSTEMS: As above. All other parameters are negative. PHYSICAL EXAMINATION: On physical emanation today he is 167 cm tall, weighs 78 kg, blood pressure is 143/66 with a heart rate of 75 which is regular, respiratory rate is 18 and he is afebrile. HEENT: Normocephalic, atraumatic. Pupils are round and reactive. Extraocular muscles intact. No cervical lymphadenopathy, carotid bruits or JVD. Cardiovascular: Regular rate and rhythm. Normal S1-S2 without gallops, rubs or murmurs. Lungs: Clear to auscultation bilaterally with good exchange. Abdomen: Soft, nontender, nondistended with normoactive bowel sounds. No hepatosplenomegaly. Extremities: Bilateral lower extremity pulses are intact without clubbing, cyanosis or edema. No venous varicosities. Neurologic: Intact with no focal deficits. IMPRESSION 1. Led-HF-mwpymcpek myocardial infarction. 2. History of coronary artery disease, status post previous PCI. 3. Hypertension. 4. Hypothyroidism. 5. Hyperlipidemia. PLAN: Following review of the coronary angiogram and in discussion with Dr. Yoder, I believe, that he will best benefit from the PCI approach as was performed yesterday. Given the lack of objective data delineating significant left main stenosis at this point surgical intervention would not be of any benefit to him. However, down the road should he experience recurrent symptoms and there is further evidence suggesting significant disease involving left-sided system, then a surgical strategy may be undertaken. Thank you for allowing me to participate in the care of this patient. Shyam SOLIS /10:22 AM /10:44 AM ABELARDO
[2017-07-22] MEDS: METOPROLOL TARTRATE 5 MG/5 ML VIAL IV PUSH SCH ×3 (17:49→18:05)
--- NOTE | 2017-07-22 18:31 | EKG ---
Date Performed: 07/22/2017 Time Performed: 07:00:08 PTAGE: 82 years EKG: Sinus rhythm with multifocal PVCs Prolonged QT interval Extensive ST-T changes are nonspecific Abnormal ECG [place] red to the PREVIOUS TRACING , ST/T wave changes are non-specific but mildly more prominent DOCTOR: Shukri Mcdonnell Interpretating Date/Time 07/22/2017 18:30:21
--- NOTE | 2017-07-22 18:41 | PD.CARD.PN ---
Subjective Subjective Remarks feels "much better", denies chest pain or dyspnea Objective Medications Current Medications Medications (Trade) Dose Ordered Sig/Mikayla Route Start Time Stop Time Status Last Admin (NS Flush) 2 ml UNSCH PRN IV FLUSH 07/20/17 17:45 07/20/17 20:54 (NS Flush) 2 ml BID IV FLUSH 07/20/17 21:00 07/22/17 08:47 (Tylenol) 650 mg Q4H PRN PO 07/20/17 17:45 (Zofran Inj) 4 mg Q6H PRN IVP 07/20/17 17:45 (Narcan Inj) 0.4 mg UNSCH PRN IV PUSH 07/20/17 17:45 (Ecotrin Ec) 162 mg DAILY PO 07/21/17 09:00 07/22/17 08:46 (Lipitor) 40 mg HS PO 07/20/17 21:00 07/21/17 20:22 (Coreg) 3.125 mg Q12H PO 07/21/17 08:00 07/22/17 08:46 (Morphine Inj) 2 mg Q3H PRN IM 07/20/17 20:30 07/21/17 07:51 (Nitroglycerin 2% Oint) 1 inch Q6H TOPICAL 07/20/17 21:00 07/21/17 20:24 Nitroglycerin/ Dextrose 250 ml @ 3 mls/hr TITRATE PRN IV 07/20/17 20:45 (NS Flush) 2 ml UNSCH PRN IV FLUSH 07/21/17 11:30 (NS Flush) 2 ml BID IV FLUSH 07/21/17 21:00 (Aspirin Chew) 162 mg DAILY PO 07/22/17 09:00 (Plavix) 75 mg DAILY PO 07/22/17 09:00 07/22/17 08:47 (Altace) 2.5 mg DAILY PO 07/22/17 09:00 07/22/17 08:46 Vital Signs / I&O Vital Signs Date Time Temp Pulse Resp B/P (MAP) Pulse Ox O2 Delivery O2 Flow Rate FiO2 07/22/17 18:10 108/57 (74) 07/22/17 18:06 112/57 (75) 07/22/17 18:01 85 07/22/17 18:00 121/62 (81) 07/22/17 17:54 116/59 (78) 07/22/17 17:48 140/58 (85) 07/22/17 17:28 102 07/22/17 16:00 92 07/22/17 15:15 97.5 79 19 121/62 (81) 92 07/22/17 15:00 92 07/22/17 14:00 66 07/22/17 13:00 60 07/22/17 12:00 66 07/22/17 11:55 97.7 71 19 129/61 (83) 95 07/22/17 11:00 68 07/22/17 10:00 62 07/22/17 09:00 74 07/22/17 08:00 72 07/22/17 08:00 98.3 75 18 143/66 (91) 92 07/22/17 07:00 73 07/22/17 06:01 73 07/22/17 05:05 68 07/22/17 04:00 72 07/22/17 03:12 71 07/22/17 03:00 98.1 69 17 119/56 (77) 93 07/22/17 02:00 63 07/22/17 01:00 60 07/22/17 00:06 55 07/21/17 23:28 97.9 70 17 131/60 (83) 94 07/21/17 23:26 71 07/21/17 22:10 56 07/21/17 21:00 58 07/21/17 20:00 57 07/21/17 19:15 70 07/21/17 19:15 98.4 73 17 146/69 (94) 95 07/21/17 19:00 95 Room Air I/O 07/21/17 07/21/17 07/21/17 07/22/17 07/22/17 07/22/17 07:00 15:00 23:00 07:00 15:00 23:00 Intake Total 82.5 ml 480 ml 480 ml 1020 ml Output Total 150 ml 820 ml 175 ml 800 ml Balance -67.5 ml -340 ml 305 ml 220 ml Intake Oral 480 ml 480 ml 1020 ml IV Total 82.5 ml Output Urine Total 150 ml 820 ml 175 ml 800 ml # Bowel Movements 0 0 Physical Exam GENERAL: SKIN: Warm and dry. HEAD: Normocephalic. EYES: No scleral icterus. No injection or drainage. NECK: Supple, trachea midline. No JVD or lymphadenopathy. CARDIOVASCULAR: Regular rate and rhythm without murmurs, gallops, or rubs. RESPIRATORY: Breath sounds equal bilaterally. No accessory muscle use. GASTROINTESTINAL: Abdomen soft, non-tender, nondistended. MUSCULOSKELETAL: No cyanosis, or edema. BACK: Nontender without obvious deformity. No CVA tenderness. Laboratory Laboratory Tests Test 07/22/17 04:11 White Blood Count 8.4 TH/MM3 Red Blood Count 3.09 MIL/MM3 Hemoglobin 9.7 GM/DL Hematocrit 27.3 % Mean Corpuscular Volume 88.5 FL Mean Corpuscular Hemoglobin 31.5 PG Mean Corpuscular Hemoglobin Concent 35.6 % Red Cell Distribution Width 13.8 % Platelet Count 156 TH/MM3 Mean Platelet Volume 8.4 FL Neutrophils (%) (Auto) 77.6 % Lymphocytes (%) (Auto) 9.7 % Monocytes (%) (Auto) 9.4 % Eosinophils (%) (Auto) 3.1 % Basophils (%) (Auto) 0.2 % Neutrophils # (Auto) 6.5 TH/MM3 Lymphocytes # (Auto) 0.8 TH/MM3 Monocytes # (Auto) 0.8 TH/MM3 Eosinophils # (Auto) 0.3 TH/MM3 Basophils # (Auto) 0.0 TH/MM3 CBC Comment DIFF FINAL Differential Comment Blood Urea Nitrogen 26 MG/DL Creatinine 0.86 MG/DL Random Glucose 109 MG/DL Calcium Level 8.5 MG/DL Sodium Level 139 MEQ/L Potassium Level 3.6 MEQ/L Chloride Level 107 MEQ/L Carbon Dioxide Level 23.7 MEQ/L Anion Gap 8 MEQ/L Estimat Glomerular Filtration Rate 85 ML/MIN Total Creatine Kinase 127 U/L Triglycerides Level 80 MG/DL Cholesterol Level 85 MG/DL LDL Cholesterol 29 MG/DL HDL Cholesterol 40.0 MG/DL Cholesterol/HDL Ratio 2.12 RATIO Assessment and Plan Problem List: (1) CHF (congestive heart failure), NYHA class III ICD Codes: I50.9 - Heart failure, unspecified (2) NSTEMI (non-ST elevated myocardial infarction) ICD Codes: I21.4 - Non-ST elevation (NSTEMI) myocardial infarction (3) Chest pain ICD Codes: R07.9 - Chest pain, unspecified Status: Acute (4) CAD (coronary artery disease) ICD Codes: I25.10 - Atherosclerotic heart disease of [place] coronary artery without angina pectoris (5) ACS (acute coronary syndrome) ICD Codes: I24.9 - Acute ischemic heart disease, unspecified Status: Acute (6) PAF (paroxysmal atrial fibrillation) ICD Codes: I48.0 - Paroxysmal atrial fibrillation Assessment and Plan 1.) CAD/NSTEMI - assymptomatic pod #1 pci rca, continue aspirin, plavix, lipitor , coreg, altace 2.) PAF - assymptomatic, patient converted with lopressor 5 mg iv x 3, dw nurse , start lopressor 12.5 mg q6 hours; consult hematology @ ac due to anemia and thrombocytopnia also in context of dapt s/p pci 07/21/17 Bennie Yoder MD Jul 22, 2017 18:41
[2017-07-22] MEDS ORDERED: PILL SPLITTER OTHER PRN (19:00)
[2017-07-22] MEDS: ATORVASTATIN 40 MG TAB PO SCH (20:13)
--- NOTE | 2017-07-22 20:48 | EKG ---
Date Performed: 07/22/2017 Time Performed: 16:01:28 PTAGE: 82 years EKG: Atrial fibrillation. Anterolateral ST-T changes are nonspecific Abnormal ECG PREVIOUS TRACING : 07/22/2017 07.00 Compared to previous tracing, possible atrial fibrillation has replaced possible Sinus rhythm with PVCs. DOCTOR: Bg Brown Interpretating Date/Time 07/22/2017 20:46:55
[2017-07-22] MEDS: METOPROLOL TARTRATE 25 MG TAB PO SCH (23:42)
[2017-07-23] VITALS (18 sets, daily range): BP systolic 111–142; BP diastolic 58–84; PULSE 48–67; RESP 14–16; TEMP 97.5–98.2; O2SAT 94–95
[2017-07-23] MEDS: NITROGLYCERIN 2% OINT 1 GM PACKET TOPICAL SCH ×3 (03:00→15:00)
[2017-07-23 05:59] LABS: MEAN CELL VOLUME 89.5 FL (80.0-100.0); MEAN CORPUSCULAR HEMOGLOBIN 30.7 PG (27.0-34.0); MEAN CORPUSCULAR HGB CONC 34.3 % (32.0-36.0); PLATELET COUNT 161 TH/MM3 (150-450); RED BLOOD COUNT 3.35 MIL/MM3 (4.50-5.90); RED CELL DISTRIBUTION WIDTH 13.6 % (11.6-17.2); REVIEW FLAG FINAL; WHITE BLOOD COUNT 6.9 TH/MM3 (4.0-11.0)
[2017-07-23] MEDS: METOPROLOL TARTRATE 25 MG TAB PO SCH (06:00)
[2017-07-23] MEDS: CARVEDILOL 3.125 MG TAB PO SCH (08:00)
--- NOTE | 2017-07-23 08:00 | HHI.PR ---
Subjective Remarks Patient is alert and oriented. denies any SOB or CP Objective Vital Signs Date Time Temp Pulse Resp B/P (MAP) Pulse Ox O2 Delivery O2 Flow Rate FiO2 07/23/17 06:28 58 07/23/17 06:28 58 07/23/17 05:01 62 07/23/17 04:03 51 07/23/17 03:10 98.2 48 16 111/58 (75) 95 07/23/17 03:00 67 07/23/17 02:00 60 07/23/17 01:00 63 07/23/17 00:08 65 07/22/17 23:00 67 07/22/17 23:00 97.9 55 16 113/55 (74) 93 07/22/17 22:00 72 07/22/17 21:00 67 07/22/17 20:00 65 07/22/17 19:15 98.3 65 16 133/61 (85) 96 07/22/17 19:00 63 07/22/17 18:39 61 07/22/17 18:10 108/57 (74) 07/22/17 18:06 112/57 (75) 07/22/17 18:01 85 07/22/17 18:00 121/62 (81) 07/22/17 17:54 116/59 (78) 07/22/17 17:48 140/58 (85) 07/22/17 17:28 102 07/22/17 16:00 92 07/22/17 15:15 97.5 79 19 121/62 (81) 92 07/22/17 15:00 92 07/22/17 14:00 66 07/22/17 13:00 60 07/22/17 12:00 66 07/22/17 11:55 97.7 71 19 129/61 (83) 95 07/22/17 11:00 68 07/22/17 10:00 62 07/22/17 09:00 74 07/22/17 08:00 72 07/22/17 08:00 98.3 75 18 143/66 (91) 92 I/O 07/22/17 07/22/17 07/22/17 07/23/17 07/23/17 07/23/17 07:00 15:00 23:00 07:00 15:00 23:00 Intake Total 480 ml 1020 ml 480 ml Output Total 175 ml 800 ml 350 ml Balance 305 ml 220 ml 130 ml Intake Oral 480 ml 1020 ml 480 ml Output Urine Total 175 ml 800 ml 350 ml # Bowel Movements 0 Result Diagram: 07/23/17 0459 07/22/17 0411 Imaging Last 72 hours Impressions Chest X-Ray 07/20/17 1454 Signed Impressions: Service Date/Time: Thursday, July 20, 2017 15:04 - CONCLUSION: Widespread diffuse interstitial prominence throughout the lungs. No pneumothorax. Kip Fields MD Procedures Cardiac cath on the Objective Remarks GENERAL: alert and oriented SKIN: Warm and dry. HEAD: Normocephalic. EYES: No scleral icterus. No injection or drainage. NECK: Supple, trachea midline. No JVD or lymphadenopathy. CARDIOVASCULAR: Regular rate and rhythm without murmurs, gallops, or rubs. RESPIRATORY: Breath sounds equal bilaterally. No accessory muscle use. GASTROINTESTINAL: Abdomen soft, non-tender, nondistended. MUSCULOSKELETAL: No cyanosis, or edema. BACK: Nontender without obvious deformity. No CVA tenderness. Medications and IVs Current Medications Medications (Trade) Dose Ordered Sig/Mikayla Route Start Time Stop Time Status Last Admin (NS Flush) 2 ml UNSCH PRN IV FLUSH 07/20/17 17:45 07/20/17 20:54 (NS Flush) 2 ml BID IV FLUSH 07/20/17 21:00 07/22/17 20:13 (Tylenol) 650 mg Q4H PRN PO 07/20/17 17:45 (Zofran Inj) 4 mg Q6H PRN IVP 07/20/17 17:45 (Narcan Inj) 0.4 mg UNSCH PRN IV PUSH 07/20/17 17:45 (Ecotrin Ec) 162 mg DAILY PO 07/21/17 09:00 07/22/17 08:46 (Lipitor) 40 mg HS PO 07/20/17 21:00 07/22/17 20:13 (Coreg) 3.125 mg Q12H PO 07/21/17 08:00 07/22/17 20:12 (Morphine Inj) 2 mg Q3H PRN IM 07/20/17 20:30 07/21/17 07:51 (Nitroglycerin 2% Oint) 1 inch Q6H TOPICAL 07/20/17 21:00 07/21/17 20:24 Nitroglycerin/ Dextrose 250 ml @ 3 mls/hr TITRATE PRN IV 07/20/17 20:45 (NS Flush) 2 ml UNSCH PRN IV FLUSH 07/21/17 11:30 (NS Flush) 2 ml BID IV FLUSH 07/21/17 21:00 (Aspirin Chew) 162 mg DAILY PO 07/22/17 09:00 (Plavix) 75 mg DAILY PO 07/22/17 09:00 07/22/17 08:47 (Altace) 2.5 mg DAILY PO 07/22/17 09:00 07/22/17 08:46 (Lopressor) 12.5 mg Q6HR PO 07/23/17 00:00 07/22/17 23:42 (Pill Splitter) 1 ea UNSCH PRN OTHER 07/22/17 19:00 Assessment and Plan Problem List: (1) NSTEMI (non-ST elevated myocardial infarction) ICD Codes: I21.4 - Non-ST elevation (NSTEMI) myocardial infarction (2) PAF (paroxysmal atrial fibrillation) ICD Codes: I48.0 - Paroxysmal atrial fibrillation (3) Chest pain ICD Codes: R07.9 - Chest pain, unspecified Status: Acute Assessment and Plan 07/23/17 NSTEMI: Heart cath on the . 2 stents placed to proximal and mid RCA. On ASA, plavix, lipitor, coreg, and altace PAF: No episodes last night. Lopressor given IV X 3 yesterday and now on Lopressor 12.5 PO every 6 hours. Anemia: HGB stable this am at 10.3 this morning. Hematology consulted per cardiology for anemia and thrombocytopenia. PLT are improved today at 161. Consult is pending. Plan is discharge home with [facility]. Will need cardiac clearance for discharge. I and the [employer] have both examined this patient and reviewed this note and I agree with these findings and plan of care. Hans Hill DO Discussed Condition With Nursing Discharge Planning Home with [facility] Trena Arreguin Jul 23, 2017 08:00
--- NOTE | 2017-07-23 08:02 | HHI.FF ---
Face to Face Verification Diagnosis: (1) NSTEMI (non-ST elevated myocardial infarction) (2) PAF (paroxysmal atrial fibrillation) Home Health Nursing Order: Medical education Signs/symptoms of disease process Medication education-adverse effect I have seen patient Jeremias Caldera on 07/23/17. My clinical findings support the need for the requested home health care services because: Deconditioned w/ increased weakness I certify that my clinical findings support that this patient is homebound because: Poor cardiac reserve Trena Arreguin Jul 23, 2017 08:02
[2017-07-23] MEDS: SODIUM CHLORIDE 0.9% FLUSH 10 ML FLUSH IV FLUSH SCH ×2 (09:00→10:03)
[2017-07-23] MEDS: ASPIRIN EC 81 MG TABEC PO SCH (09:00)
--- NOTE | 2017-07-23 09:29 | MB ---
cc: BHARATH PARSONS MD,KATHY DOHERTY M.D. DATE OF CONSULTATION 07/23/2017 DATE OF [address] Bennie Yoder REASON FOR CONSULTATION Normocytic anemia. CHIEF COMPLAINT Mr. Caldera reports developing severe chest pain in the substernal area on SundayJuly 21. He was walking in [facility] at that time. He presented to the emergency department to rule out myocardial infarction. HISTORY OF PRESENT ILLNESS Mr. Caldera is an 82-year-old male who is well-known to my associate, Dr. Kathy Ramos, who follows this patient for a history of prostate carcinoma which is under control at this time and the patient is on observation. Mrs. Caldera does have a history of coronary artery disease and underwent coronary artery angiogram, as well as stent placement in 2011 (by Dr. Yoder), he had been on outpatient Plavix and I believe aspirin. The patient denies having had any overt bleeding. He reports being in his usual fair state of health up until Sunday when while walking in [facility] he developed sudden onset of substernal chest pain. He was brought into [facility] and was assessed to have a non-ST elevation [place]. He underwent cardiac catheterization procedure on 07/21/2017 and was found to have severe left main disease. He underwent successful PTCA of the proximal right coronary artery. The patient was also evaluated by thoracic surgery to determine if he may require coronary artery bypass graft surgery, but was recommended observation. While in the hospital, he was noted to have anemia, hemoglobin at presentation was noted to be 11.2 gm/dl. His hematocrit was 32.8%, MCV of 89. Over the course of the hospitalization, he has had a drop in hemoglobin, hematocrit, on 07/22/2017 his hemoglobin was noted to be 9.7 gm/dl. As of today, it has increased to 10.3. Serum iron studies have been ordered, stool for occult blood has also been ordered. PAST MEDICAL HISTORY 1. Coronary artery disease 2. History of carcinoma of the prostate. 3. Hyperlipidemia 4. Hypertension 5. Presbycusis 6. Previous radiation therapy to the prostate. PAST SURGICAL HISTORY 1. Colonoscopy in 2013, he had two benign polyps. 2. Fracture of the right humerus in 2016 which was treated Conservatively. 3. Robot-assisted prostatectomy performed in [place] 2009. 4. Umbilical hernia repair in 2014. 5. Cataract surgeries in 2007. 6 Rotator cuff surgery in 2006. 7. Previous history of prostate biopsies. FAMILY HISTORY Parents are both , mom at the age of 52 of heart failure. He also had some sort of gastrointestinal cancer. Father at the age of 43 of a myocardial infarction. SOCIAL HISTORY He is , he lives at home with his . He has two daughters and a son. Patient is originally from [facility], he is retired. ALLERGIES NO KNOWN DRUG ALLERGIES. CURRENT INPATIENT MEDICATIONS 1. Tylenol 650 mg q.4h as needed for fever 2. Aspirin 81 mg p.o. daily. 3. Plavix 75 mg p.o. daily 4. Coreg 3.125 mg p.o. b.i.d. 5. Atorvastatin 40 mg p.o. q.h.s. 6. Nitroglycerin infusion to titrate 7. Metoprolol 12.5 mg p.o. q6 8. Zofran 4 mg IV q6h as needed for nausea and vomiting. 9. Altace 2.5 mg p.o. daily REVIEW OF SYSTEMS A 13-point review of systems is obtained the following are the pertinent positives: CONSTITUTIONAL: The patient denies fatigue, fevers, chills, night sweats, loss of appetite, weight loss. HEENT: Denies headaches, blurry vision, difficulty swallowing or soreness in the throat. GI: Denies nausea, vomiting, diarrhea, hematochezia, or melena. : Denies dysuria, hematuria or urine incontinence. He does report nocturia. RESPIRATORY: Reports exertional dyspnea, denies cough, hemoptysis or pleuritic chest pain aches. CARDIOVASCULAR: Reports having had acute onset chest pain four days ago. This is no longer present. He denies palpitations, syncope, PND, orthopnea. BEAMSTER: No focal sensory motor deficits. SKIN: No complaints. PHYSICAL EXAMINATION Temperature 97.5 degrees Fahrenheit, heart rate 58 beats a minute, respiratory rate 14, blood pressure 125/84, O2 sats 94% on room air. GENERAL PHYSICAL APPEARANCE: Mr. Caldera is a very pleasant 82-year-old male, he is sitting up in bed, he appears to be in no acute distress. He does appear to be somewhat pale. He speaks to me in full sentences. HEENT: Head atraumatic, normocephalic, conjunctive are mildly pale, sclerae are anicteric, EOMI, PERRLA, oral exam, no pharyngeal erythema. NECK: No palpable cervical or supraclavicular lymphadenopathy. RESPIRATORY: Good air movement bilaterally without prolonged expiratory phase, no rales, rhonchi or wheezes. CARDIOVASCULAR: Regular rate and rhythm, S1-S2. No obvious murmurs, rubs or gallops. ABDOMEN: Protuberant, soft, nontender, nondistended. No palpable organ enlargement, specifically no hepatosplenomegaly. INGUINAL EXAMINATION: He does have a dressing over his right inguinal area, the dressing is clean, no active bleeding noted. This was the site of his arterial catheter insertion on 07/21. EXTREMITIES: Lower extremities: No pretibial edema or calf tenderness. BEAMSTER: No focal sensory motor deficits. LABORATORY FINDINGS CBC dated 07/22/2017: WBC count 8.4, hemoglobin 9.7 gm/dl, hematocrit 27.3%, platelet count 157, absolute neutrophil count is 6.5. CBC dated 07/23/2017: WBC count 6.9, hemoglobin 10.3 gm/dl, hematocrit 30%, platelet count 161. Chemistries: Sodium 139, potassium 3.6, chloride 107, bicarb 23.7, BUN is 26, creatinine 0.86, random glucose 109, calcium 8.5, total creatinine kinase 127, triglycerides 80, cholesterol 85. Serum iron studies, serum protein electrophoresis, folic acid, vitamin B12 level and stool for occult blood testing is pending at this time. CHEST X-RAY 07/20/2017 indicates widespread diffuse interstitial prominence throughout the lungs without evidence of pneumothorax. ASSESSMENT Mrs. Caldera is an 82-year-old male with a previous history of prostate carcinoma which was initially treated with a robotic prostatectomy in 2009. He had biochemical relapse and was treated with external beam radiation therapy (IMRT) after he moved to [place], I believe three years ago. He has since then been on observation, biochemically his disease has been responding with progressive decline in his PSA. He primarily follows with my associate, Dr. Kathy Ramos, for his prostate carcinoma. The patient does have a history of coronary artery disease and required coronary artery stenting in 2011 after he had acute myocardial infarction. On 07/21/2017, he developed sudden onset chest pain while he was out shopping. He came into the emergency department and was assessed to have a non-ST elevation myocardial infarction. Cardiac catheterization ensued and he was noted to have a right dominant coronary artery system, he had also significant stenosis of the left main coronary artery. He underwent angioplasty of the right coronary artery occlusion. He has, at this point, been recommended medical management with antiplatelet therapy (combination of aspirin and Plavix). The hematology service has been asked to see him for further evaluation of normocytic anemia. His hemoglobin/hematocrit at presentation was 11.2 and approximately 33%. On 07/22/2017, his hemoglobin dropped down to 9.7 gm/dl, but has spontaneously improved to 10.3. RECOMMENDATIONS Anemia: I have ordered an anemia workup and this will be a fairly basic anemia workup for the time being and will include serum iron studies and stool for occult blood testing as well as assessment of vitamin B12 and folic acid levels. I have also order a serum protein electrophoresis. He is cleared for discharge from an oncology standpoint given the resolution of his symptoms. I have advised him to schedule followup with Dr. Ramos to review the results of the anemia workup in the clinic in the next one to two weeks. The patient understands and I will personally convey this mass is to Dr. Ramos. MD LIZZY Bingham/ZAIN /8:44 AM /9:06 AM
[2017-07-23] MEDS: RAMIPRIL 2.5 MG CAP PO SCH (10:01)
[2017-07-23] MEDS: CLOPIDOGREL 75 MG TAB PO SCH (10:01)
[2017-07-23] MEDS: ASPIRIN 81 MG CHEW TAB PO SCH (10:03)
[2017-07-23] MEDS ORDERED: CARVEDILOL 6.25 MG TAB PO SCH (10:45)
[2017-07-23 11:54] LABS: TRANSFERRIN IRON PROFILE 198 MG/DL (200-360)
[2017-07-23 12:20] LABS: FERRITIN 154 NG/ML (26-388); TOTAL PROTEIN SPE 6.4 GM/DL (6.0-7.6)
--- NOTE | 2017-07-23 13:43 | PD.CARD.PN ---
Subjective Subjective Remarks feels "much better", denies chest pain or dyspnea Objective Medications Current Medications Medications (Trade) Dose Ordered Sig/Imkayla Route Start Time Stop Time Status Last Admin (NS Flush) 2 ml UNSCH PRN IV FLUSH 07/20/17 17:45 07/20/17 20:54 (NS Flush) 2 ml BID IV FLUSH 07/20/17 21:00 07/23/17 10:03 (Tylenol) 650 mg Q4H PRN PO 07/20/17 17:45 (Zofran Inj) 4 mg Q6H PRN IVP 07/20/17 17:45 (Narcan Inj) 0.4 mg UNSCH PRN IV PUSH 07/20/17 17:45 (Ecotrin Ec) 162 mg DAILY PO 07/21/17 09:00 07/22/17 08:46 (Lipitor) 40 mg HS PO 07/20/17 21:00 07/22/17 20:13 (Morphine Inj) 2 mg Q3H PRN IM 07/20/17 20:30 07/21/17 07:51 (Nitroglycerin 2% Oint) 1 inch Q6H TOPICAL 07/20/17 21:00 07/23/17 10:03 Nitroglycerin/ Dextrose 250 ml @ 3 mls/hr TITRATE PRN IV 07/20/17 20:45 (NS Flush) 2 ml UNSCH PRN IV FLUSH 07/21/17 11:30 (NS Flush) 2 ml BID IV FLUSH 07/21/17 21:00 (Aspirin Chew) 162 mg DAILY PO 07/22/17 09:00 07/23/17 10:03 (Plavix) 75 mg DAILY PO 07/22/17 09:00 07/23/17 10:01 (Altace) 2.5 mg DAILY PO 07/22/17 09:00 07/23/17 10:01 (Pill Splitter) 1 ea UNSCH PRN OTHER 07/22/17 19:00 (Coreg) 6.25 mg BID PO 07/23/17 10:45 07/23/17 11:02 Vital Signs / I&O Vital Signs Date Time Temp Pulse Resp B/P (MAP) Pulse Ox O2 Delivery O2 Flow Rate FiO2 07/23/17 11:00 60 07/23/17 11:00 97.8 61 16 142/63 (89) 94 07/23/17 10:00 64 07/23/17 09:00 60 07/23/17 08:00 60 07/23/17 07:45 97.5 58 14 125/84 (98) 94 07/23/17 07:00 56 07/23/17 06:28 58 07/23/17 06:28 58 07/23/17 05:01 62 07/23/17 04:03 51 07/23/17 03:10 98.2 48 16 111/58 (75) 95 07/23/17 03:00 67 07/23/17 02:00 60 07/23/17 01:00 63 07/23/17 00:08 65 07/22/17 23:00 67 07/22/17 23:00 97.9 55 16 113/55 (74) 93 07/22/17 22:00 72 07/22/17 21:00 67 07/22/17 20:00 65 07/22/17 19:15 98.3 65 16 133/61 (85) 96 07/22/17 19:00 63 07/22/17 18:39 61 07/22/17 18:10 108/57 (74) 07/22/17 18:06 112/57 (75) 07/22/17 18:01 85 07/22/17 18:00 121/62 (81) 07/22/17 17:54 116/59 (78) 07/22/17 17:48 140/58 (85) 07/22/17 17:28 102 07/22/17 16:00 92 07/22/17 15:15 97.5 79 19 121/62 (81) 92 07/22/17 15:00 92 07/22/17 14:00 66 I/O 07/22/17 07/22/17 07/22/17 07/23/17 07/23/17 07/23/17 07:00 15:00 23:00 07:00 15:00 23:00 Intake Total 480 ml 1020 ml 480 ml Output Total 175 ml 800 ml 350 ml Balance 305 ml 220 ml 130 ml Intake Oral 480 ml 1020 ml 480 ml Output Urine Total 175 ml 800 ml 350 ml # Bowel Movements 0 Physical Exam GENERAL: SKIN: Warm and dry. HEAD: Normocephalic. EYES: No scleral icterus. No injection or drainage. NECK: Supple, trachea midline. No JVD or lymphadenopathy. CARDIOVASCULAR: Regular rate and rhythm without murmurs, gallops, or rubs. RESPIRATORY: Breath sounds equal bilaterally. No accessory muscle use. GASTROINTESTINAL: Abdomen soft, non-tender, nondistended. MUSCULOSKELETAL: No cyanosis, or edema. BACK: Nontender without obvious deformity. No CVA tenderness. Laboratory Laboratory Tests Test 07/23/17 04:59 07/23/17 11:03 White Blood Count 6.9 TH/MM3 Red Blood Count 3.35 MIL/MM3 Hemoglobin 10.3 GM/DL Hematocrit 30.0 % Mean Corpuscular Volume 89.5 FL Mean Corpuscular Hemoglobin 30.7 PG Mean Corpuscular Hemoglobin Concent 34.3 % Red Cell Distribution Width 13.6 % Platelet Count 161 TH/MM3 Mean Platelet Volume 9.3 FL Iron Level 48 MCG/DL Total Iron Binding Capacity 277 MCG/DL Percent Iron Saturation 17.3 % Ferritin 154 NG/ML Total Protein 6.4 GM/DL Vitamin B12 Level 1306 PG/ML Folate 19.3 NG/ML Assessment and Plan Problem List: (1) CHF (congestive heart failure), NYHA class III ICD Codes: I50.9 - Heart failure, unspecified (2) NSTEMI (non-ST elevated myocardial infarction) ICD Codes: I21.4 - Non-ST elevation (NSTEMI) myocardial infarction (3) Chest pain ICD Codes: R07.9 - Chest pain, unspecified Status: Acute (4) CAD (coronary artery disease) ICD Codes: I25.10 - Atherosclerotic heart disease of [place] coronary artery without angina pectoris (5) ACS (acute coronary syndrome) ICD Codes: I24.9 - Acute ischemic heart disease, unspecified Status: Acute (6) PAF (paroxysmal atrial fibrillation) ICD Codes: I48.0 - Paroxysmal atrial fibrillation Assessment and Plan 1.) CAD/NSTEMI - assymptomatic pod #1 pci rca, continue aspirin, plavix, lipitor , coreg, altace 2.) PAF - assymptomatic, patient converted with lopressor 5 mg iv x 3, dw nurse , start lopressor 12.5 mg q6 hours; consult hematology @ ac due to anemia and thrombocytopnia also in context of dapt s/p pci 07/21/17 3.) ok to dc from cv standpoint, f/u with me 07/24/17 d/w nurse and patient Bennie Yoder MD Jul 23, 2017 13:43
[2017-07-23] MEDS ORDERED: PLAV75TA29 PO (14:43)
[2017-07-23] MEDS ORDERED: CARV6.25 PO (14:43)
[2017-07-23] MEDS ORDERED: RAMI2.5C PO (14:43)
[2017-07-23] MEDS ORDERED: ASPI-516 CHEW (14:43)
[2017-07-23] MEDS ORDERED: ROSU10 PO (14:43)
--- NOTE | 2017-07-23 14:52 | HHI.DS ---
Discharge Summary Admission Date Jul 20, 2017 at 16:49 Discharge Date: Jul 23, 2017 Admitting Diagnosis ACS, Chest Pain (1) NSTEMI (non-ST elevated myocardial infarction) ICD Codes: I21.4 - Non-ST elevation (NSTEMI) myocardial infarction (2) PAF (paroxysmal atrial fibrillation) ICD Codes: I48.0 - Paroxysmal atrial fibrillation Procedures Cardiac cath on the Brief History Patient is a very pleasant 82-year gentleman history coronary disease presented to ED with chest pain. The patient began developing chest pain on was mild more of a nuisance. He went to [facility] yesterday and developed severe substernal chest pain, severe shortness of breath, weakness, fatigue, diaphoresis, and came to the emergency room was found have elevated troponin. CBC/BMP: 07/23/17 0459 07/22/17 0411 Significant Findings Laboratory Tests Test 07/20/17 15:00 07/20/17 17:00 07/20/17 21:34 07/21/17 00:05 Blood Urea Nitrogen 23 MG/DL (7-18) Random Glucose 112 MG/DL (74-106) Estimat Glomerular Filtration Rate 73 ML/MIN (>89) Troponin I 0.07 NG/ML (0.02-0.05) 0.06 NG/ML (0.02-0.05) 0.07 NG/ML (0.02-0.05) Red Blood Count 3.67 MIL/MM3 (4.50-5.90) Hemoglobin 11.2 GM/DL (13.0-17.0) Hematocrit 32.8 % (39.0-51.0) Neutrophils (%) (Auto) 70.9 % (16.0-70.0) Eosinophils (%) (Auto) 4.3 % (0.0-4.0) Test 07/21/17 03:00 07/21/17 03:28 07/21/17 12:25 07/22/17 04:11 Activated Partial Thromboplast Time 52.2 SEC (24.3-30.1) Red Blood Count 3.38 MIL/MM3 (4.50-5.90) 3.09 MIL/MM3 (4.50-5.90) Hemoglobin 10.3 GM/DL (13.0-17.0) 9.7 GM/DL (13.0-17.0) Hematocrit 30.0 % (39.0-51.0) 27.3 % (39.0-51.0) Platelet Count 123 TH/MM3 (150-450) B-Type Natriuretic Peptide 760 PG/ML (0-100) Blood Urea Nitrogen 27 MG/DL (7-18) 26 MG/DL (7-18) Random Glucose 109 MG/DL (74-106) 109 MG/DL (74-106) Albumin 3.1 GM/DL (3.4-5.0) Carbon Dioxide Level 19.7 MEQ/L (21.0-32.0) Estimat Glomerular Filtration Rate 79 ML/MIN (>89) 85 ML/MIN (>89) Neutrophils (%) (Auto) 77.6 % (16.0-70.0) Monocytes (%) (Auto) 9.4 % (0.0-8.0) Lymphocytes # (Auto) 0.8 TH/MM3 (1.0-4.8) Cholesterol Level 85 MG/DL (120-200) Test 07/23/17 04:59 07/23/17 11:03 Red Blood Count 3.35 MIL/MM3 (4.50-5.90) Hemoglobin 10.3 GM/DL (13.0-17.0) Hematocrit 30.0 % (39.0-51.0) Iron Level 48 MCG/DL (65-175) Percent Iron Saturation 17.3 % (20-50) Vitamin B12 Level 1306 PG/ML (193-986) Folate 19.3 NG/ML (3.1-17.5) PE at Discharge GENERAL: alert and oriented SKIN: Warm and dry. HEAD: Normocephalic. EYES: No scleral icterus. No injection or drainage. NECK: Supple, trachea midline. No JVD or lymphadenopathy. CARDIOVASCULAR: Regular rate and rhythm without murmurs, gallops, or rubs. RESPIRATORY: Breath sounds equal bilaterally. No accessory muscle use. GASTROINTESTINAL: Abdomen soft, non-tender, nondistended. MUSCULOSKELETAL: No cyanosis, or edema. BACK: Nontender without obvious deformity. No CVA tenderness. Hospital Course Patient is a very pleasant 82-year gentleman history coronary disease presented to ED with chest pain. The patient began developing chest pain on was mild more of a nuisance. He went to [facility] yesterday and developed severe substernal chest pain, severe shortness of breath, weakness, fatigue, diaphoresis, and came to the emergency room was found have elevated troponin. [facility] the and two stents where placed in proximal and mid RCA. Patient also had PAF which was treated with lopressor IV. He is discharged home on plavix which should be continue for 12 to 14 months per cardiology note. Coreg which was increased today, low dose kristie inhibitor, statin and ASA. Request [facility] to help with medication compliance. Hematology also consulted for anemia and thrombocytopenia. Labs ordered and is ok to follow up outpatient with Dr. Ramos. Follow up appt made for [facility] and per nursing is having follow up with Dr. Yoder tomorrow. Pt Condition on Discharge: Good Discharge Disposition: Disch w/ Home Health Serv Discharge Instructions DIET: Follow Instructions for: Heart Healthy Diet Activities you can perform: Regular-No Restrictions Follow up Referrals: Appointment for Follow Up @ [facility] Follow-up @ [facility] July 30 at 1:30 New Medications: Carvedilol (Coreg) 6.25 Mg Tab 6.25 MG PO BID for Blood Pressure Management for 30 Days, #60 TAB Ramipril (Ramipril) 2.5 Mg Cap 2.5 MG PO DAILY for Blood Pressure Management for 30 Days, #30 CAP Continued Medications: Aspirin (Aspirin) 81 Mg Chew 81 MG CHEW DAILY for Blood Clot Prevention for 30 Days, #30 TAB 0 Refills (This prescription has been renewed) Clopidogrel (Plavix) 75 Mg Tab 75 MG PO DAILY for Blood Clot Prevention, #30 TAB 0 Refills (This prescription has been renewed) Fish Oil-Cholecalciferol (Mary Alice-3 Fish Oil/Vitamin) 1,000-1,000 Mg Cap 1 CAP PO DAILY for Nutritional Supplement, CAP 0 Refills Rosuvastatin (Crestor) 10 Mg Tab 10 MG PO DAILY for Cholesterol Management, #30 TAB 0 Refills (This prescription has been renewed) Discontinued Medications: Hydrochlorothiazide (Hydrochlorothiazide) 25 Mg Tab 25 MG PO DAILY, #30 TAB 0 Refills Metoprolol Tartrate (Metoprolol Tartrate) 25 Mg Tab 25 MG PO DAILY, #30 TAB 0 Refills Pyridoxine (Pyridoxine) 100 Mg Tab 200 MG PO DAILY for Nutritional Supplement, #30 TAB 0 Refills Trena Arreguin 27, 2017 14:52
[2017-07-24 18:02] LABS: ALBUMIN SPE 3.56 GM/DL (3.50-5.00); ALPHA 1 GLOBULIN 0.26 GM/DL (0.11-0.29); ALPHA 2 GLOBULIN 0.76 GM/DL (0.22-1.00); BETA GLOBULINS (SPE) 0.65 GM/DL (0.53-1.03)
== END 2017-07-23 15:50 | disposition home health service (06) | DRG 251 ==
LOC: NEPC 14:21 → NEDA 16:49 → HCPC 20:06 → HCIS 07-23 11:48
PROVIDERS: ADMIT Family Medicine; ATTEND Family Medicine
PROC: 02703ZZ Dilation of Coronary Artery, One Artery, Percutaneous Approach (ICD-10-PCS; principal; 2017-07-21)
PROC: 4A023N8 Measurement of Cardiac Sampling and Pressure, Bilateral, Percutaneous Approach (ICD-10-PCS; 2017-07-21)
PROC: B2151ZZ Fluoroscopy of Left Heart using Low Osmolar Contrast (ICD-10-PCS; 2017-07-21)
PROC: B2111ZZ Fluoroscopy of Multiple Coronary Arteries using Low Osmolar Contrast (ICD-10-PCS; 2017-07-21)
PROC: B240ZZ3 Ultrasonography of Single Coronary Artery, Intravascular (ICD-10-PCS; 2017-07-21)
DX: I21.4 Non-ST elevation (NSTEMI) myocardial infarction (principal); D69.6 Thrombocytopenia, unspecified; I11.0 Hypertensive heart disease with heart failure; I50.9 Heart failure, unspecified; I48.0 Paroxysmal atrial fibrillation; I25.119 Atherosclerotic heart disease of native coronary artery with unspecified angina pectoris; Z95.5 Presence of coronary angioplasty implant and graft; I25.2 Old myocardial infarction; E03.9 Hypothyroidism, unspecified; E78.5 Hyperlipidemia, unspecified; Z79.02 Long term (current) use of antithrombotics/antiplatelets; Z79.82 Long term (current) use of aspirin; H91.10 Presbycusis, unspecified ear; D64.9 Anemia, unspecified; Z85.46 Personal history of malignant neoplasm of prostate; Z92.3 Personal history of irradiation
CPT/HCPCS: 71010; 80048; 80053; 80061; 82550; 82607; 82728; 82746; 82810; 83540; 83550; 83735; 83880; 84165; 84484; 85002; 85025; 85027; 85610; 85730; 92920; 92978; 93005; 93460; 99285; C1725; C1753; C1769; C1876; C1887; C1893; J1644; J2270; J3246; Q9967

== ENCOUNTER 2017-12-21 13:36 | Emergency (ER) | payer MEDICARE, OTHER, BC ==
[~2017-12-21] VITALS: Ht 167.6 cm; Wt 70.9 kg
[~2017-12-21 13:36] MED LIST changes: +ASPI-516 CHEW; -ASPI81 PO; +CARV6.25 PO; -CLOP75 PO; -CRES10TA OR; -FISH100020 PO; -HYDR-2768 PO; -METO25 PO; +OMEGCAP PO; +PLAV75TA29 PO; +RAMI2.5C PO; +ROSU10 PO; -VITA200T2 PO
[2017-12-21 13:40] VITALS: BP 160/73; PULSE 87; RESP 18; TEMP 97.8; O2SAT 98
[2017-12-21] MEDS ORDERED: AMLO10TA2 PO (14:09)
[2017-12-21] MEDS ORDERED: LEVO50TA4 PO (14:09)
[2017-12-21] MEDS ORDERED: FAMOTIDINE 20 MG/2 ML VIAL IV PUSH ONE (15:30)
[2017-12-21] MEDS ORDERED: SODIUM CHLORIDE 0.9% FLUSH 10 ML FLUSH IV FLUSH PRN (15:30)
[2017-12-21] MEDS ORDERED: EPINEPHrine HCL (1:1000) 1 MG/ML VIAL IM ONE (15:30)
[2017-12-21] MEDS ORDERED: diphenhydrAMINE HCL 50 MG/ML VIAL IVP ONE (15:30)
[2017-12-21] MEDS ORDERED: methylPREDNISolone SOD SUCC 125 MG/2 ML VIAL IV PUSH ONE (15:30)
[2017-12-21] MEDS ORDERED: MEDR4PAK PO (15:41)
[2017-12-21] MEDS ORDERED: CLAR10CA3 PO (15:41)
[2017-12-21] MEDS ORDERED: FAMO1TAB73 PO (15:41)
--- NOTE | 2017-12-21 15:42 | PD ---
HPI Chief Complaint: Allergic/Adverse Reaction Time Seen by Provider: 15:30 Travel History International Travel<30 days: No Contact w/Intl Traveler<30days: No Traveled to known affect area: No History of Present Illness HPI Patient states that he woke up this morning and noticed that his top lip had some swelling, no swelling to his tongue. Patient denies any shortness of breath, any rashes to his skin, or any difficulty breathing. Patient gives a history of taking ramipril 2.5 mg which was recommended by Dr. Hill, approximately 3 months ago. Patient is unsure as to what the reason for this medication is. Patient denies having anything any differently any different food or anything along those lines as a matter of fact today he was having routine blood work done so he would have some results by next Sunday when he has an appointment with his primary care physician. He does note that he had a CAT scan with IV contrast performed on Sunday but he did not have any effects until this morning, Sunday morning, literally 3 days later. Primary care is Dr. Hill No known drug allergy Past medical history significant for cataracts extraction, tonsillectomy, hearing aids, coronary artery disease, hypercholesterolemia hyperlipidemia hypertension, prostate CA, status post prostatectomy, bilateral inguinal hernia repair, hiatal hernia, recent valve replacement by Dr. Mcdowell, [facility], [facility] Past Medical History Hx Anticoagulant Therapy: Yes Autoimmune Disease: No Cancer: Yes (PROSTATE) Cardiovascular Problems: Yes High Cholesterol: Yes Diabetes: No Endocrine: No Genitourinary: Yes (PROSTATE CA) Hepatitis: No Hiatal Hernia: No Hypertension: Yes Immune Disorder: No Implanted Vascular Access Dvce: Yes Musculoskeletal: Yes Neurologic: Yes (NUMBNESS/ TINGLING LEFT HAND) Psychiatric: No Reproductive: No Respiratory: No Thyroid Disease: No Influenza Vaccination: No Past Surgical History Abdominal Surgery: Yes (MICHAEL. ING. HERNIA REP. HIATAL HERNIA. ) AICD: No Arteriovenous Shunt: No Body Medical Devices: STENTS Cardiac Surgery: No Ear Surgery: No Endocrine Surgery: No Eye Surgery: No Genitourinary Surgery: Yes (PROSTATECTOMY) Gynecologic Surgery: No Insulin Pump: No Joint Replacement: No Oral Surgery: No Pacemaker: No Prostatectomy: Yes Thoracic Surgery: No Other Surgery: Yes Social History Alcohol Use: No Tobacco Use: No Substance Use: No Allergies-Medications (Allergen,Severity, Reaction): Coded Allergies: No Known Allergies (Unverified Allergy, Unknown, 12/21/17) Reported Meds & Prescriptions Reported Meds & Active Scripts Active Ramipril 2.5 Mg Cap 2.5 Mg PO DAILY 30 Days Coreg (Carvedilol) 6.25 Mg Tab 6.25 Mg PO BID 30 Days Crestor (Rosuvastatin Calcium) 10 Mg Tab 10 Mg PO DAILY Plavix (Clopidogrel Bisulfate) 75 Mg Tab 75 Mg PO DAILY Aspirin 81 Mg Chew 81 Mg CHEW DAILY 30 Days Reported Levothyroxine (Levothyroxine Sodium) 50 Mcg Tab 50 Mcg PO DAILY Amlodipine (Amlodipine Besylate) 10 Mg Tab 10 Mg PO DAILY [place]-3 Fish Oil/Vitamin (Fish Oil-Cholecalciferol) 1,000-1,000 Mg Cap 1 Cap PO DAILY Review of Systems General / Constitutional: No: Fever Eyes: No: Visual changes HENT: No: Headaches Cardiovascular: No: Chest Pain or Discomfort Respiratory: No: Shortness of Breath Gastrointestinal: No: Abdominal Pain Genitourinary: No: Dysuria Musculoskeletal: No: Pain Skin: Positive Other (Superior lip swelling) Neurologic: No: Weakness Psychiatric: No: Depression Endocrine: No: Polydipsia Hematologic/Lymphatic: No: Easy Bruising Physical Exam Narrative GENERAL: SKIN: Warm and dry. No high HEAD: Atraumatic. Normocephalic. EYES: Pupils equal and round. No scleral icterus. No injection or drainage. ENT: No nasal bleeding or discharge. Mucous membranes pink and moist. Mild edema to superior lip without extension to the uvula nor to the tongue NECK: Trachea midline. No JVD. No stridor CARDIOVASCULAR: Regular rate and rhythm. RESPIRATORY: No accessory muscle use. Clear to auscultation. Breath sounds equal bilaterally. No wheezing GASTROINTESTINAL: Abdomen soft, non-tender, nondistended. Hepatic and splenic margins not palpable. MUSCULOSKELETAL: Extremities without clubbing, cyanosis, or edema. No obvious deformities. NEUROLOGICAL: Awake and alert. No obvious cranial nerve deficits. Motor grossly within normal limits. Five out of 5 muscle strength in the arms and legs. Normal speech. PSYCHIATRIC: Appropriate mood and affect; insight and judgment normal. Data Data Last Documented VS Vital Signs Date Time Temp Pulse Resp B/P (MAP) Pulse Ox O2 Delivery O2 Flow Rate FiO2 12/21/17 14:01 82 98 Room Air 12/21/17 13:40 97.8 18 160/73 (102) Orders Orders Ecg Monitoring (12/21/17 15:22) Iv Access Insert/Monitor (12/21/17 15:22) Oximetry (12/21/17 15:22) Diphenhydramine Inj (Benadryl Inj) (12/21/17 15:30) Methylprednisolone So Succ Inj (Solumedr (12/21/17 15:30) Famotidine Inj (Pepcid Inj) (12/21/17 15:30) Sodium Chloride 0.9% Flush (Ns Flush) (12/21/17 15:30) Epinephrine (1:1000) Inj (Adrenalin (1:1 (12/21/17 15:30) MDM Medical Decision Making Medical Screen Exam Complete: Yes Emergency Medical Condition: Yes Medical Record Reviewed: Yes Differential Diagnosis Allergic reaction versus NILESH related angioedema Narrative Course Patient has a very heavy cardiac history including a recent valve replacement and hypertension history. All of these risk factors increase the risk of serious adverse effects to even EpiPen Jr , therefore for that reason the patient will be provided with steroid, histamine 1 and histamine 2 blockers but will hold on the EpiPen Jr. Of note the patient is in no distress, has no respiratory distress signs such as tachypnea, retractions, cyanosis, and his pulse ox has been in the normal range of 96-99 without additional oxygen on room air and with an excellent pleth wave Diagnosis Primary Impression: Angioedema Referrals: Hans Hill DO keep your appointment Patient Instructions: Angioedema (ED), General Instructions Additional Instructions: Please stop taking ramipril 2.5 mg tablets. Keep your appointment with your primary care physician and let him know that it caused swelling to your top lip. Depending on what the purpose of this medication was, you may be switched to an angiotensin receptor sean or ARB Scripts Methylprednisolone Dosepak (Medrol Dosepak) 4 Mg Dspk 4 MG PO DIRECTED, #1 DSPK 0 Refills Per Pharmacist direction Prov: Jose Patel MD 12/21/17 Loratadine (Claritin) 10 Mg Cap 10 MG PO DAILY for Allergy Management for 5 Days, #5 CAP 0 Refills Prov: Jose Patel MD 12/21/17 Famotidine (Pepcid) 40 Mg Tab 40 MG PO DAILY for 5 Days, #5 TAB 0 Refills Prov: Jose Patel MD 12/21/17 Disposition: 01 DISCHARGE HOME Condition: Stable Jose Patel MD Dec 21, 2017 15:42
[2017-12-21 16:25] VITALS: RESP 16; O2SAT 97
[2017-12-21 16:28] VITALS: BP 144/63; PULSE 62; RESP 16; O2SAT 97
== END 2017-12-21 17:38 | disposition home or self-care (01) ==
LOC: PHED 13:36
DX: T78.3XXA Angioneurotic edema, initial encounter (principal); I10 Essential (primary) hypertension; I25.10 Atherosclerotic heart disease of native coronary artery without angina pectoris; E78.5 Hyperlipidemia, unspecified; Z85.46 Personal history of malignant neoplasm of prostate
CPT/HCPCS: 96374; 96375; 99284; J1200; J2930